=== PATIENT | male | born 1960 | race Caucasian/White ===

== ENCOUNTER 2022-11-27 05:50 | Inpatient (IN) | payer OTHER ==
[~2022-11-27] VITALS: Ht 175.3 cm; Wt 66.7 kg
--- NOTE | 2022-11-27 06:00 | NUR ---
To ER bed 9, [id number], from home, c/o sob x 4 weeks 99% on room air, aaox4, breathing even and non labored, connected to monitor
--- NOTE | 2022-11-27 06:14 | NUR ---
XRAY AT BEDSIDE
--- NOTE | 2022-11-27 06:24 | NUR ---
EDWIGE COLLECTED AND SENT TO LAB
[2022-11-27] MEDS ORDERED: FUROSEMIDE 40 MG/4 ML VIAL ONE (06:41)
[2022-11-27] MEDS ORDERED: NITROGLYCERIN PACKET 1 GM PACKET ONE (06:42)
[2022-11-27] MEDS ORDERED: ASPIRIN 325 MG TABLET ONE (06:42)
[2022-11-27 06:56] LABS: BASOPHILS # (AUTO) 0.1 K/uL (0.0-0.2); RED BLOOD CELL COUNT(AUTO) 2.88 MIL/uL (4.5-6.0)
[2022-11-27] MEDS ORDERED: NITROGLYCERIN PACKET 1 GM PACKET TD ONE (07:00)
[2022-11-27] MEDS ORDERED: FUROSEMIDE 40 MG/4 ML VIAL IV ONE (07:00)
[2022-11-27] MEDS ORDERED: ASPIRIN 325 MG TABLET PO ONE (07:00)
[2022-11-27 07:22] LABS: CALCIUM, SERUM 8.4 mg/dL (8.5-10.1); CARBON DIOXIDE 25 mmol/L (21-32); CHLORIDE 107 mmol/L (98-107); CREATININE 1.2 mg/dL (0.6-1.3); GLUCOSE 112 mg/dL (74-106); POTASSIUM 4.2 mmol/L (3.5-5.1); SODIUM SERUM 141 mmol/L (136-145); UREA NITROGEN, BLOOD 37 mg/dL (7-18)
[2022-11-27 07:26] LABS: EOSINOPHILS % (AUTO) 1.2 % (0.0-6.0); HEMATOCRIT 23 % (39-51); LYMPHOCYTES # (AUTO) 1.6 K/uL (0.8-4.8); MEAN CORPUSCULAR HGB CONC 30 g/dl (31.0-36.0); MEAN CORPUSCULAR VOLUME 81 fL (80-96); MONOCYTES # (AUTO) 0.7 K/uL (0.1-1.30); MONOCYTES % (AUTO) 7.7 % (2.0-12.0); NEUTROPHILS # (AUTO) 6.8 K/uL (1.8-8.9); NEUTROPHILS % (AUTO) 73.1 % (43.0-81.0); PLATELET COUNT (AUTO) 361 K/uL (150-450); WHITE BLOOD COUNT (AUTO) 9.3 K/uL (4.3-11.0)
[2022-11-27 07:30] LABS: ALANINE AMINOTRANSFERASE 33 U/L (12-78); ALBUMIN 2.7 g/dL (3.4-5.0); ALKALINE PHOSPHATASE 113 U/L (46-116); ASPARTATE AMINOTRANSFERASE 22 U/L (15-37); BILIRUBIN,DIRECT 0.1 mg/dL (0.0-0.2); BILIRUBIN,TOTAL 0.3 mg/dL (0.2-1.0)
--- NOTE | 2022-11-27 07:32 | NUR ---
HOMOGLOBIN 7.0 M MADE AWARE
[2022-11-27 07:51] LABS: BILIRUBIN,URINE NEGATIVE (NEGATIVE); COLOR,URINE YELLOW (YELLOW); LEUKOCYTE ESTERASE ,URINE NEGATIVE (NEGATIVE); NITRITE, URINE NEGATIVE (NEGATIVE); PROTEIN,URINE TRACE mg/dl (NEGATIVE); UGLUCOSE 1+ mg/dL (NEGATIVE); UROBILINOGEN,URINE 0.2 EU/dL (0.2)
--- NOTE | 2022-11-27 07:54 | NUR ---
CONSENT FOR BLOOD TRANSFUSION SIGNED BY PATIENT
[2022-11-27] MEDS ORDERED: PANTOPRAZOLE 40 MG VIAL ONE (08:00)
[2022-11-27] MEDS ORDERED: PANTOPRAZOLE 40 MG VIAL IV ONE (08:00)
[2022-11-27 08:24] LABS: BACTERIA,URINE None seen /HPF (None Seen); RBC,URINE 0-2 /HPF (0-2); SQUAMOUS EPITHELIAL CELL,UR Rare /HPF (None Seen); WBC,URINE 0-2 /HPF (0-3)
--- NOTE | 2022-11-27 09:35 | NUR ---
BLOOD TRANSFUSION STARTED AT A SLOW RATE FOR 15 MIN, MONITORING FOR SIGNS AND SYMPTOMS OF REACTION. BLOOD VERIFIED BY TWO RN. INITIAL VITALS TAKEN AND RECORDED. CARE CONTINUES.
--- NOTE | 2022-11-27 09:50 | NUR ---
NO BLOOD TRANSFUSION REACTION NOTED THIS TIME.
[2022-11-27] MEDS ORDERED: IPRATROPIUM NEB FS 0.5 MG/2.5 ML AMPUL.NEB NEB PRN (10:00)
[2022-11-27] MEDS ORDERED: MAG HYDROX/AL HYDROX/SIMETH 30 ML UDC PO PRN (10:00)
[2022-11-27] MEDS ORDERED: ZOLPIDEM TARTRATE 5 MG TABLET PO PRN (10:00)
[2022-11-27] MEDS ORDERED: MAGNESIUM HYDROXIDE 30 ML UDC PO PRN (10:00)
[2022-11-27] MEDS ORDERED: ONDANSETRON HCL/PF 4 MG/2 ML VIAL IVP PRN (10:00)
[2022-11-27] MEDS ORDERED: ACETAMINOPHEN 325 MG TABLET PO PRN (10:00)
[2022-11-27] MEDS ORDERED: Z GUARD REMEDY 4 OZ OINT TP PRN (10:00)
[2022-11-27] MEDS ORDERED: ALBUTEROL FS 2.5 MG/3 ML VIAL.NEB NEB PRN (10:00)
[2022-11-27 10:03] LABS: FERRITIN 13 ng/mL (8-388)
--- NOTE | 2022-11-27 10:05 | NUR ---
GOT BED 119-1 ADMITTING INFORMED.
[2022-11-27 10:08] LABS: IRON, SERUM 16 ug/dl (50-175); TOTAL IRON BINDING CAPACITY 434 ug/dl (250-450)
[2022-11-27] MEDS ORDERED: hydrALAZINE HCL IV 20 MG VIAL IV PRN (10:30)
--- NOTE | 2022-11-27 10:45 | NUR ---
BLOOD TRANSFUSION DONE, NO BAD REACTION NOTED. NOTIFIED.
--- NOTE | 2022-11-27 10:58 | NUR ---
REPORT GIVEN TO GISELLE RODARTE FOR BALAJI
--- NOTE | 2022-11-27 11:15 | NUR ---
MOVED TO INPATIENT ROOM SAFELY PER ACLS PROTOCOL. ENDORSED TO FLOOR NURSE AT BEDSIDE
--- NOTE | 2022-11-27 11:22 | NUR ---
RN NOTE PATIENT REFUSED TO HAVE SURGERY NOTIFIED MD, PATIENT REFUSES TO BE NPO WELL.
[2022-11-27 12:00] VITALS: BP 147/72
--- NOTE | 2022-11-27 12:35 | NUR ---
RN NOTE PER MD, PATIENT CAN HAVE REGULAR DIET, WILL FOCUS ON CHF EXACERBATION. PATIENT REFUSED EGD.
[2022-11-27 16:00] VITALS: BP 143/96
[2022-11-27] MEDS: METOPROLOL SUCCINATE 25 MG TAB.SR.24H PO SCH (16:18)
[2022-11-27] MEDS: methylPREDNISolone SOD SUCC 40 MG/ML VIAL IV SCH ×2 (16:18→20:46)
--- NOTE | 2022-11-27 19:45 | NUR ---
RN OPENING NOTES: RECEIVED PATIENT IN BED, AWAKE, ALERT/ORIENTED X4 AND VERBALLY RESPONSIVE. AMBULATORY TO THE RESTROOM. ON O2 AT 1L/MIN VIA N/C AND PT TOLERATED WELL IV ACCESS ON LT WRIST #20G INTACT AND PATENT. NO S/S OF INFILTRATIONS. PATIENT REFUSED EGD ON PREVIOUS SHIFT. DR. CARR. NO C/O PAIN OR DISCOMFORT. NO ACUTE DISTRESS. ALL SAFETY MEASURES IN PLACE. BED IN LOWEST POSITION AND LOCKED. SIDE RAILS UP X3, PLACE CALL LIGHT WITH IN REACH, WILL CONTINUE TO MONITOR
[2022-11-27 20:00] VITALS: BP 145/86
--- NOTE | 2022-11-27 20:23 | NUR ---
MANAGER STORY CLOSING NOTE PATIENT IS IN BED AOX4, AMBULATORY. BREATHING ON 1L NC, COMPLAINING OF SOB, EDUCATED PATIENT TO SIT IN TRIPOD POSITION TO BREATHE. ABLE TO MAKE NEEDS KNOWN. IV ACCESS ON LW #20GSL. PHOTO OF LOWER LEFT LEG RASH TAKEN AND PLACED IN CHART. WOUND CARE CONSULT ORDERED. PATIENT REFUSED EGD, MD AWARE. PATIENT IS ON REGULAR DIET. WILL ENDORSE CONTINUITY OF CARE TO CRYSTAL LAPPER NURSE.
[2022-11-27] MEDS: PANTOPRAZOLE 40 MG VIAL IV SCH (20:46)
[2022-11-27] MEDS: FUROSEMIDE 40 MG/4 ML VIAL IV SCH (21:25)
[2022-11-28] VITALS: BP 125/82
[2022-11-28 04:00] VITALS: BP 147/92
[2022-11-28] MEDS: methylPREDNISolone SOD SUCC 40 MG/ML VIAL IV SCH ×3 (05:19→21:56)
--- NOTE | 2022-11-28 06:40 | NUR ---
RN CLOSING NOTES: PATIENT IN BED, AWAKE, ALERT/ORIENTED X4 AND VERBALLY RESPONSIVE. ON O2 AT 1L/MIN VIA N/C AND PT TOLERATED WELL. O2 SAT 95%. IV ACCESS ON LAC #20G INTACT AND PATENT. NO S/S OF INFILTRATIONS. NO C/O PAIN OR DISCOMFORT. NO ACUTE DISTRESS. ALL DUE MEDS GIVEN ORDERED. ALL SAFETY MEASURES IN PLACE. BED IN LOWEST POSITION AND LOCKED. SIDE RAILS UP X3, PLACE CALL LIGHT WITH IN REACH, WILL ENDORSE TO MORNING SHIFT NURSE.
[2022-11-28 06:54] LABS: BASOPHILS % (AUTO) 0.4 % (0.0-2.0); HEMATOCRIT 27 % (39-51); HEMOGLOBIN 8.4 g/dL (13.5-17.5); LYMPHOCYTES # (AUTO) 0.5 K/uL (0.8-4.8); LYMPHOCYTES % (AUTO) 5.4 % (20.0-44.0); MEAN CORPUSCULAR HGB CONC 31 g/dl (31.0-36.0); MEAN CORPUSCULAR VOLUME 78 fL (80-96); MONOCYTES # (AUTO) 0.1 K/uL (0.1-1.30); MONOCYTES % (AUTO) 0.6 % (2.0-12.0); NEUTROPHILS # (AUTO) 9.4 K/uL (1.8-8.9); NEUTROPHILS % (AUTO) 93.6 % (43.0-81.0); PLATELET COUNT (AUTO) 366 K/uL (150-450); RED BLOOD CELL COUNT(AUTO) 3.44 MIL/uL (4.5-6.0)
[2022-11-28 07:08] LABS: CALCIUM, SERUM 8.6 mg/dL (8.5-10.1); CREATININE 1.4 mg/dL (0.6-1.3); MAGNESIUM 2.3 mg/dL (1.8-2.4); PHOSPHORUS 4.9 mg/dL (2.5-4.9)
--- NOTE | 2022-11-28 07:12 | NUR ---
RN OPENING NOTES: RECEIVED PATIENT IN BED, AWAKE, ALERT/ORIENTED X4 AND VERBALLY RESPONSIVE. AMBULATORY TO THE RESTROOM. ON O2 AT 1L/MIN VIA N/C AND PT TOLERATED WELL IV ACCESS ON LAC #20G INTACT AND PATENT. NO S/S OF INFILTRATIONS. NO C/O PAIN OR DISCOMFORT. NO ACUTE DISTRESS. ALL SAFETY MEASURES IN PLACE. BED IN LOWEST POSITION AND LOCKED. SIDE RAILS UP X3, PLACE CALL LIGHT WITH IN REACH, WILL CONTINUE TO MONITOR
--- NOTE | 2022-11-28 07:38 | NUR ---
WOUND CARE CONSULT: PT PRESENTS WITH SCABS OVER SCARRING TO RT LOWER LEG, PRESENT ON ADMISSION. RECOMMENDATIONS MADE FOR SKIN PROTECTION. DISCUSSED WITH NURSING STAFF. MD IN AGREEMENT WITH PLAN OF CARE.
[2022-11-28 08:00] VITALS: BP 147/93
[2022-11-28] MEDS: POTASSIUM CHLORIDE 10 MEQ TABLET.SA PO SCH (08:27)
[2022-11-28] MEDS: OLANZAPINE 5 MG TABLET PO SCH (08:28)
[2022-11-28] MEDS: PANTOPRAZOLE 40 MG VIAL IV SCH ×2 (08:28→21:54)
[2022-11-28] MEDS: FUROSEMIDE 40 MG/4 ML VIAL IV SCH ×2 (08:28→21:43)
[2022-11-28] MEDS: METOPROLOL SUCCINATE 25 MG TAB.SR.24H PO SCH (09:28)
[2022-11-28 12:00] VITALS: BP 139/80
[2022-11-28] MEDS: SPIRONOLACTONE 25 MG TABLET PO SCH (12:26)
[2022-11-28] MEDS: LOSARTAN POTASSIUM 25 MG TABLET PO SCH (12:27)
[2022-11-28] MEDS ORDERED: FURO40TA5 PO (14:01)
[2022-11-28] MEDS ORDERED: DAPA10TA PO (14:01)
[2022-11-28] MEDS ORDERED: POTA-88 PO (14:01)
[2022-11-28] MEDS ORDERED: APIX5TAB PO (14:01)
[2022-11-28] MEDS ORDERED: PANT40TA49 PO (14:01)
[2022-11-28] MEDS ORDERED: METO25TA4 PO (14:01)
[2022-11-28] MEDS ORDERED: OLAN5TAB3 PO (14:01)
[2022-11-28] MEDS: MINERAL OIL/PETROL OINT 396 GM JAR TP SCH (15:17)
--- NOTE | 2022-11-28 15:37 | NUR ---
RN NOTE RECEIVED CALL FROM CHITO Eden PT POSITIVE FOR R NARES MRSA. NOTIFIED WITH ORDER. NOTED AND CARRIED OUT.
[2022-11-28 16:00] VITALS: BP 128/81
[2022-11-28] MEDS: MUPIROCIN OINT 2% 22 GM TUBE TP SCH (16:50)
--- NOTE | 2022-11-28 18:29 | NUR ---
CASINO DEALER CLOSING NOTE PT IN BED. AOX3. WITH PLEASANT ATTITUDE . ABLE TO MAKE NEEDS KNOWN. NO RESP DISTRESS NOTED. SKIN WARM AND DRY TO TOUCH. CALL LIGHT WITHIN REACH. ON 1 LPM. NC. TOLERATING WELL. TX RENDERED TO Kaleigh FRIEDMAN ON REGULAR DIET . NO ASPIRATION NOTED. LAC 20G, PATENT AND INTACT. NO INFILTRATION NOTED. CALL LIGHT WITHIN REACH
--- NOTE | 2022-11-28 19:35 | NUR ---
DIESEL ENGINE SPECIALIST OPENING NOTE RECEIVED PATIENT IN BED; AWAKE, ALERT AND ORIENTED X 4. ON O2 INHALATION @ 1 LPM VIA NASAL CANNULA; TOLERATING WELL. BREATHING EVEN AND NONLABORED. ON TELE MONITORING WHICH READS SINUS TACHYCARDIA HR-102 BPM. DENIES ANY PAIN OR DISCOMFORT. WITH IV ACCESS ON LEFT ANTECUBITAL 20g; PATENT, INTACT AND SALINE LOCKED. ABLE TO MAKE NEEDS KNOWN. FALL AND SAFETY PRECAUTIONS INITIATED: CALL LIGHT AND TABLE WITHIN REACH, SIDE RAILS UP X 2, BED IN LOWEST LOCKED POSITION. WILL CONTINUE TO MONITOR THROUGHOUT SHIFT.
[2022-11-28 20:00] VITALS: BP 128/73
[2022-11-29] VITALS: BP 137/86
[2022-11-29 04:00] VITALS: BP 137/91
[2022-11-29] MEDS: MUPIROCIN OINT 2% 22 GM TUBE TP SCH (04:12)
[2022-11-29] MEDS: methylPREDNISolone SOD SUCC 40 MG/ML VIAL IV SCH ×3 (04:49→22:04)
--- NOTE | 2022-11-29 07:00 | NUR ---
LEARNING TECHNOLOGIST CLOSING NOTE PATIENT IN BED; AWAKE, A/O X 4. STILL ON O2 INHALATION @ 1 LPM VIA NASAL CANNULA; WELL TOLERATED. IN NO ACUTE DISTRESS. ON TELE MONITORING WHICH READS SINUS TACHYCARDIA HR-102 BPM. DENIES ANY PAIN OR DISCOMFORT. WITH IV ACCESS ON LEFT ANTECUBITAL 20g; PATENT, INTACT AND SALINE LOCKED. ALL NEEDS ATTENDED. FALL AND SAFETY PRECAUTIONS MAINTAINED: CALL LIGHT AND TABLE WITHIN REACH, SIDE RAILS UP X 2, BED IN LOWEST LOCKED POSITION. ENDORSED TO MORNING SHIFT FOR CONTINUITY OF CARE. Addendum: 11/29/22 at 0739 by SHERRI MAYFIELD RN PATIENT REMOVED TELE BOX. REFUSED TO BE HOOKED BACK TO EXTERNAL BUSINESS DEVELOPMENT ENGINEER.
--- NOTE | 2022-11-29 07:00 | NUR ---
RETAIL WAREHOUSE SUPERVISOR OPENING NOTE RECEIVED PATIENT IN BED; AWAKE, ALERT AND ORIENTED X 4. AGITATED, ON O2 INHALATION @ 1 LPM VIA NASAL CANNULA; TOLERATING WELL WITH NO COMPLAINS OF SHORTNESS OF BREATH, PAIN OR DISCOMFORT. PATIENT IS TELEMETRY WITH NO TELE BOX, PATIENT REFUSING. WITH IV ACCESS ON LEFT ANTECUBITAL 20g; PATENT, INTACT AND SALINE LOCKED. ABLE TO MAKE NEEDS KNOWN. SAFETY MEASURES IN PLACE, CALL LIGHT AND TABLE WITHIN REACH, SIDE RAILS UP X 2, BED IN LOWEST LOCKED POSITION. WILL CONTINUE TO MONITOR.
[2022-11-29 07:26] LABS: BASOPHILS % (AUTO) 0.1 % (0.0-2.0); HEMATOCRIT 30 % (39-51); HEMOGLOBIN 8.9 g/dL (13.5-17.5); LYMPHOCYTES # (AUTO) 0.7 K/uL (0.8-4.8); LYMPHOCYTES % (AUTO) 2.8 % (20.0-44.0); MEAN CORPUSCULAR HGB CONC 30 g/dl (31.0-36.0); MEAN CORPUSCULAR VOLUME 79 fL (80-96); MONOCYTES # (AUTO) 0.4 K/uL (0.1-1.30); MONOCYTES % (AUTO) 1.5 % (2.0-12.0); NEUTROPHILS % (AUTO) 95.6 % (43.0-81.0); PLATELET COUNT (AUTO) 424 K/uL (150-450); RED BLOOD CELL COUNT(AUTO) 3.78 MIL/uL (4.5-6.0)
[2022-11-29 07:55] LABS: CALCIUM, SERUM 8.7 mg/dL (8.5-10.1); CREATININE 1.4 mg/dL (0.6-1.3); MAGNESIUM 2.2 mg/dL (1.8-2.4); PHOSPHORUS 4.7 mg/dL (2.5-4.9)
[2022-11-29 08:00] VITALS: BP 160/99
[2022-11-29] MEDS: PANTOPRAZOLE 40 MG VIAL IV SCH ×2 (08:17→22:03)
[2022-11-29] MEDS: POTASSIUM CHLORIDE 10 MEQ TABLET.SA PO SCH (08:18)
[2022-11-29] MEDS: FUROSEMIDE 40 MG/4 ML VIAL IV SCH ×2 (08:18→22:04)
[2022-11-29] MEDS: LOSARTAN POTASSIUM 25 MG TABLET PO SCH (08:18)
[2022-11-29] MEDS: SPIRONOLACTONE 25 MG TABLET PO SCH (08:18)
[2022-11-29] MEDS: OLANZAPINE 5 MG TABLET PO SCH (08:18)
[2022-11-29] MEDS: MINERAL OIL/PETROL OINT 396 GM JAR TP SCH (08:31)
[2022-11-29] MEDS: METOPROLOL SUCCINATE 25 MG TAB.SR.24H PO SCH (10:48)
[2022-11-29 12:00] VITALS: BP 124/76
[2022-11-29 16:00] VITALS: BP 124/76
--- NOTE | 2022-11-29 19:01 | NUR ---
GRADUATE INTERNSHIP CLOSING NOTE PATIENT IN BED; AWAKE, ALERT AND ORIENTED X 4. ON O2 INHALATION @ 1 LPM VIA NASAL CANNULA; TOLERATING WELL WITH NO COMPLAINS OF SHORTNESS OF BREATH, PAIN OR DISCOMFORT. IV ACCESS ON LEFT ANTECUBITAL 20g; PATENT, INTACT AND SALINE LOCKED. ABLE TO MAKE NEEDS KNOWN. SAFETY MEASURES IN PLACE, CALL LIGHT AND TABLE WITHIN REACH, SIDE RAILS UP X 2, BED IN LOWEST LOCKED POSITION. REPORT GIVEN TO LAB CLERK NURSE FOR CONTINUING OF CARE.
--- NOTE | 2022-11-29 19:20 | NUR ---
BUSINESS STRATEGY MANAGER OPENING NOTE RECEIVED PT RESTING IN BED, AWAKE, A&OX3, VERBAL, AFEBRILE, BREATHING EVEN AND UNLABORED, DENIES PAIN, SKIN WARM AND DRY TO TOUCH, LAC 20 G C/D/I, SL, NO ACUTE DISTRESS NOTED AT THIS TIME, WILL CONTINUE TO MONITOR
[2022-11-29 20:00] VITALS: BP 128/76
[2022-11-29] MEDS: MUPIROCIN OINT 2% 22 GM TUBE NS SCH (21:59)
[2022-11-30] VITALS: BP 126/77
[2022-11-30 04:00] VITALS: BP 140/93
[2022-11-30] MEDS ORDERED: methylPREDNISolone SOD SUCC 40 MG/ML VIAL ONE (05:14)
[2022-11-30] MEDS: methylPREDNISolone SOD SUCC 40 MG/ML VIAL IV SCH ×3 (05:29→21:12)
--- NOTE | 2022-11-30 06:50 | NUR ---
MENTAL TESTER CLOSING NOTE RECEIVED PT RESTING IN BED, AWAKE, A&OX3, VERBAL, AFEBRILE, BREATHING EVEN AND UNLABORED, DENIES PAIN, SKIN WARM AND DRY TO TOUCH, LAC 20 G C/D/I, ALL DUE MEDS GIVEN PER MD ORDERS TOLERATED WELL, ALL BASIC NEEDS MET AND ANTICIPATED, ALL SAFETY MEASURES IN PLACE, WILL CONTINUE TO MONITOR
--- NOTE | 2022-11-30 07:00 | NUR ---
PRODUCT PROMOTER RETAIL PET CLOSING NOTE PATIENT IN BED; AWAKE, ALERT AND ORIENTED X 4. ON O2 INHALATION @ 1 LPM VIA NASAL CANNULA; TOLERATING WELL WITH NO COMPLAINS OF SHORTNESS OF BREATH, PAIN OR DISCOMFORT. IV ACCESS ON LEFT ANTECUBITAL 20g; PATENT, INTACT AND SALINE LOCKED. ABLE TO MAKE NEEDS KNOWN. SAFETY MEASURES IN PLACE, CALL LIGHT AND TABLE WITHIN REACH, SIDE RAILS UP X 2, BED IN LOWEST LOCKED POSITION. WILL CONTINUE TO MONITOR
[2022-11-30 07:41] LABS: HEMATOCRIT 31 % (39-51); HEMOGLOBIN 9.4 g/dL (13.5-17.5); LYMPHOCYTES # (AUTO) 0.4 K/uL (0.8-4.8); LYMPHOCYTES % (AUTO) 2.3 % (20.0-44.0); MEAN CORPUSCULAR HGB CONC 30 g/dl (31.0-36.0); MEAN CORPUSCULAR VOLUME 80 fL (80-96); MONOCYTES # (AUTO) 0.3 K/uL (0.1-1.30); MONOCYTES % (AUTO) 1.4 % (2.0-12.0); NEUTROPHILS # (AUTO) 18.4 K/uL (1.8-8.9); NEUTROPHILS % (AUTO) 96.3 % (43.0-81.0); PLATELET COUNT (AUTO) 423 K/uL (150-450); RED BLOOD CELL COUNT(AUTO) 3.87 MIL/uL (4.5-6.0); WHITE BLOOD COUNT (AUTO) 19.1 K/uL (4.3-11.0)
[2022-11-30 08:00] VITALS: BP 143/89
[2022-11-30 08:52] LABS: CALCIUM, SERUM 8.4 mg/dL (8.5-10.1); CREATININE 1.4 mg/dL (0.6-1.3); MAGNESIUM 2.2 mg/dL (1.8-2.4); PHOSPHORUS 4.5 mg/dL (2.5-4.9); POTASSIUM 3.7 mmol/L (3.5-5.1)
[2022-11-30] MEDS: SPIRONOLACTONE 25 MG TABLET PO SCH (09:23)
[2022-11-30] MEDS: LOSARTAN POTASSIUM 25 MG TABLET PO SCH (09:23)
[2022-11-30] MEDS: POTASSIUM CHLORIDE 10 MEQ TABLET.SA PO SCH (09:23)
[2022-11-30] MEDS: METOPROLOL SUCCINATE 25 MG TAB.SR.24H PO SCH (09:24)
[2022-11-30] MEDS: OLANZAPINE 5 MG TABLET PO SCH (09:24)
[2022-11-30] MEDS: FUROSEMIDE 40 MG/4 ML VIAL IV SCH (09:24)
[2022-11-30] MEDS: PANTOPRAZOLE 40 MG VIAL IV SCH (09:24)
--- NOTE | 2022-11-30 10:06 | NUR ---
RN NOTE AWAITING FOR MUPIROCIN AND AQUAPHOR. PHARMACY NOTIFIED
[2022-11-30] MEDS: MUPIROCIN OINT 2% 22 GM TUBE NS SCH ×2 (10:22→21:13)
--- NOTE | 2022-11-30 10:40 | NUR ---
RN NOTE AQUAPHOR BROUGHT BY PHARMACY AT THIS TIME
[2022-11-30] MEDS: MINERAL OIL/PETROL OINT 396 GM JAR TP SCH (10:41)
--- NOTE | 2022-11-30 19:33 | NUR ---
RN CLOSING NOTE PATIENT IN BED; AWAKE, ALERT AND ORIENTED X 4. ON O2 INHALATION @ 1 LPM VIA NASAL CANNULA; TOLERATING WELL WITH NO COMPLAINS OF SHORTNESS OF BREATH, PAIN OR DISCOMFORT. IV ACCESS ON LEFT ANTECUBITAL 20g; PATENT, INTACT AND SALINE LOCKED. ABLE TO MAKE NEEDS KNOWN. ALL MEDICATIONS GIVEN, PATIENT REPOSITIONED EVERY [address] MEASURES IN PLACE, CALL LIGHT AND TABLE WITHIN REACH, SIDE RAILS UP X 2, BED IN LOWEST LOCKED POSITION. REPORT GIVEN TO RN COMMUNITY NURSE.
[2022-11-30 20:00] VITALS: BP 130/89
--- NOTE | 2022-11-30 20:03 | NUR ---
RN OPENING NOTE PATIENT AWAKE IN BED. A/OX4. NO S/S OF DISTRESS, BREATHING WITHOUT DIFFICULTY ON 1L NC. LAC #20 SL INTACT AND PATENT. SAFETY MEASURES IN PLACE: BED LOCKED AND AT LOWEST POSITION, RAILS UP X2, CALL COLE WITHIN REACH. WILL CONTINUE TO MONITOR PATIENT.
[2022-11-30] MEDS: PANTOPRAZOLE 40 MG TABLET.DR PO SCH (21:13)
[2022-12-01 04:00] VITALS: BP 130/89
[2022-12-01] MEDS: methylPREDNISolone SOD SUCC 40 MG/ML VIAL IV SCH ×2 (05:51→12:54)
[2022-12-01 06:54] LABS: BASOPHILS % (AUTO) 0.2 % (0.0-2.0); HEMATOCRIT 30 % (39-51); HEMOGLOBIN 8.9 g/dL (13.5-17.5); LYMPHOCYTES # (AUTO) 0.5 K/uL (0.8-4.8); LYMPHOCYTES % (AUTO) 2.7 % (20.0-44.0); MEAN CORPUSCULAR HGB CONC 30 g/dl (31.0-36.0); MEAN CORPUSCULAR VOLUME 79 fL (80-96); MONOCYTES # (AUTO) 0.5 K/uL (0.1-1.30); NEUTROPHILS # (AUTO) 15.9 K/uL (1.8-8.9); NEUTROPHILS % (AUTO) 94.1 % (43.0-81.0); PLATELET COUNT (AUTO) 446 K/uL (150-450); RED BLOOD CELL COUNT(AUTO) 3.78 MIL/uL (4.5-6.0); WHITE BLOOD COUNT (AUTO) 16.9 K/uL (4.3-11.0)
--- NOTE | 2022-12-01 06:59 | NUR ---
RN CLOSING NOTE PATIENT AWAKE IN ROOM. A/OX4. NO S/S OF DISTRESS, BREATHING WITHOUT DIFFICULTY ON 1L NC. R-HAND #20 SL INTACT AND PATENT. PATIENT HAD REMOVED HIS PREVIOUS IV ACCESS; NO BLOOD; PRESSURE DRESSING APPLIED FOR SAFETY. NEW ACCESS ACHIEVED. SAFETY MEASURES IN PLACE: BED LOCKED AND AT LOWEST POSITION, RAILS UP X2, CALL COLE WITHIN REACH. WILL ENDORSE TO NEXT SHIFT FOR BALAJI.
[2022-12-01 07:11] LABS: CALCIUM, SERUM 8.6 mg/dL (8.5-10.1); CREATININE 1.4 mg/dL (0.6-1.3); MAGNESIUM 2.5 mg/dL (1.8-2.4); PHOSPHORUS 4.8 mg/dL (2.5-4.9); POTASSIUM 4.3 mmol/L (3.5-5.1)
[2022-12-01] MEDS ORDERED: FUROSEMIDE 40 MG TABLET PO SCH (09:00)
[2022-12-01] MEDS: MINERAL OIL/PETROL OINT 396 GM JAR TP SCH (09:47)
[2022-12-01 09:48] VITALS: BP 155/98
[2022-12-01] MEDS: SPIRONOLACTONE 25 MG TABLET PO SCH (09:48)
[2022-12-01] MEDS: METOPROLOL SUCCINATE 25 MG TAB.SR.24H PO SCH (09:48)
[2022-12-01] MEDS: PANTOPRAZOLE 40 MG TABLET.DR PO SCH (09:48)
[2022-12-01] MEDS: LOSARTAN POTASSIUM 25 MG TABLET PO SCH (09:48)
[2022-12-01] MEDS: POTASSIUM CHLORIDE 10 MEQ TABLET.SA PO SCH (09:48)
[2022-12-01] MEDS: OLANZAPINE 5 MG TABLET PO SCH (09:48)
[2022-12-01] MEDS: MUPIROCIN OINT 2% 22 GM TUBE NS SCH (09:51)
[2022-12-01] MEDS ORDERED: SPIR25TA PO (11:33)
[2022-12-01] MEDS ORDERED: FURO-144 PO (11:33)
[2022-12-01] MEDS ORDERED: METH4TAB3 PO (11:35)
[2022-12-01] MEDS ORDERED: POTA10CA43 PO (11:35)
--- NOTE | 2022-12-01 19:34 | NUR ---
Discharged patient to home per MDs order, patient stable A/O x4 able to make needs known, no pain or in any form of distress, all belongings accounted for, IV access removed, C/D/I, patient given discharge instructions both verbally and in writing. Charge nurse aware of the discharge
== END 2022-12-01 15:39 | disposition home health service (06) | DRG 140 ==
LOC: ER 06:03 → TELE1 10:43 → MEDSG1 11-29 10:30
PROVIDERS: ADMIT Nurse Practitioner Acute Care; ATTEND Nurse Practitioner Acute Care
PROC: 30233N1 Transfusion of Nonautologous Red Blood Cells into Peripheral Vein, Percutaneous Approach (ICD-10-PCS; principal; 2022-11-27)
DX: J44.1 Chronic obstructive pulmonary disease with (acute) exacerbation (principal); N17.0 Acute kidney failure with tubular necrosis; I50.23 Acute on chronic systolic (congestive) heart failure; D63.8 Anemia in other chronic diseases classified elsewhere; E88.09 Other disorders of plasma-protein metabolism, not elsewhere classified; I42.8 Other cardiomyopathies; I11.0 Hypertensive heart disease with heart failure; D50.9 Iron deficiency anemia, unspecified; E78.5 Hyperlipidemia, unspecified; Z20.822 Contact with and (suspected) exposure to COVID-19; F31.9 Bipolar disorder, unspecified; N40.0 Benign prostatic hyperplasia without lower urinary tract symptoms; Z79.899 Other long term (current) drug therapy; Z79.01 Long term (current) use of anticoagulants; Z91.199 Patient's noncompliance with other medical treatment and regimen due to unspecified reason; F17.200 Nicotine dependence, unspecified, uncomplicated; F14.90 Cocaine use, unspecified, uncomplicated; Z87.19 Personal history of other diseases of the digestive system
CPT/HCPCS: 36415; 71045-TC; 76770-TC; 80048-TC; 80061-TC; 80076-TC; 81001; 82728-TC; 83540-TC; 83605-TC; 83735-TC; 83880; 84100-TC; 84484-TC; 85025-TC; 85730-TC; 86850-TC; 87040-TC; 87081-TC; 87086-TC; 93307-TC; C9113; C9803; G0378; J1940; J2920; J7050; P9016

== ENCOUNTER 2023-02-04 21:28 | Inpatient (IN) | payer OTHER ==
[~2023-02-04] VITALS: Ht 180.3 cm; Wt 57.2 kg
[~2023-02-04 21:28] MED LIST: APIX5TAB PO; DAPA10TA PO; FURO-144 PO; METH4TAB3 PO; METO25TA4 PO; OLAN5TAB3 PO; PANT40TA49 PO; POTA10CA43 PO; SPIR25TA PO
[2023-02-04] MEDS ORDERED: CEFEPIME 1 GM VIAL ONE (22:10)
[2023-02-04] MEDS ORDERED: VANCOMYCIN 1 GM /D5W 250 ML PB IV ONE (22:10)
[2023-02-04] MEDS ORDERED: FUROSEMIDE 40 MG/4 ML VIAL ONE (22:14)
[2023-02-04 22:26] LABS: EOSINOPHILS % (AUTO) 0.1 % (0.0-6.0)
[2023-02-04] MEDS ORDERED: IV NS 0.9% 1,000 ML BAG IV ONE (22:30)
[2023-02-04] MEDS ORDERED: CEFEPIME 1 GM in IV D5W 50 ML IV ONE (22:30)
[2023-02-04] MEDS ORDERED: VANCOMYCIN 1 GM in IV D5W 250 ML IV ONE (22:30)
[2023-02-04] MEDS ORDERED: FUROSEMIDE 40 MG/4 ML VIAL IV ONE (22:30)
[2023-02-04 22:36] LABS: ABG BASE EXCESS -1.6 mmol/L; ABG OXYGEN SATURATION 98.7 % (92.0-98.5); ABG PH 7.529 (7.350-7.450); ABG PO2 200.6 mmHg (75.0-100.0); COHb 0.3 % (0.5-1.5); MetHb 0.9 % (0.0-1.5); O2Hb 97.5 % (94.0-97.0); SITE, ABG Right Radial; VENT MODE, BG 12L SIMPLE MASK
[2023-02-04 22:48] LABS: LYMPHOCYTES # (AUTO) 1.5 K/uL (0.8-4.8); LYMPHOCYTES % (AUTO) 3.4 % (20.0-44.0); MEAN CORPUSCULAR HGB CONC 28 g/dl (31.0-36.0); MEAN CORPUSCULAR VOLUME 78 fL (80-96); MONOCYTES # (AUTO) 1.6 K/uL (0.1-1.30); MONOCYTES % (AUTO) 3.7 % (2.0-12.0); NEUTROPHILS # (AUTO) 40.3 K/uL (1.8-8.9); NEUTROPHILS % (AUTO) 92.8 % (43.0-81.0); PLATELET COUNT (AUTO) 250 K/uL (150-450); RED BLOOD CELL COUNT(AUTO) 2.18 MIL/uL (4.5-6.0)
[2023-02-04 22:51] LABS: ALANINE AMINOTRANSFERASE 233 U/L (12-78); ALBUMIN 1.9 g/dL (3.4-5.0); ALKALINE PHOSPHATASE 80 U/L (46-116); ASPARTATE AMINOTRANSFERASE 69 U/L (15-37); BILIRUBIN,DIRECT 0.6 mg/dL (0.0-0.2); BILIRUBIN,TOTAL 1.3 mg/dL (0.2-1.0); CALCIUM, SERUM 7.5 mg/dL (8.5-10.1); CARBON DIOXIDE 19 mmol/L (21-32); CHLORIDE 104 mmol/L (98-107); CREATININE 2.1 mg/dL (0.6-1.3); GLUCOSE 86 mg/dL (74-106); SODIUM SERUM 140 mmol/L (136-145); TOTAL PROTEIN, SERUM 4.6 g/dL (6.4-8.2)
[2023-02-04 22:55] LABS: WHITE BLOOD COUNT (AUTO) 43.4 K/uL (4.3-11.0)
[2023-02-04 22:56] LABS: HEMATOCRIT 17 % (39-51); HEMOGLOBIN 4.7 g/dL (13.5-17.5)
[2023-02-04 22:57] LABS: POTASSIUM 2.5 mmol/L (3.5-5.1); UREA NITROGEN, BLOOD 88 mg/dL (7-18)
[2023-02-04] MEDS ORDERED: LORAZEPAM INJ 2 MG/ML VIAL ONE (23:18)
[2023-02-04] MEDS ORDERED: LORAZEPAM INJ 2 MG/ML VIAL IV ONE (23:30)
[2023-02-04] MEDS ORDERED: POTASSIUM CL. PREMIX PERIPHER. 50 ML ONE (23:50)
[2023-02-04] MEDS: POTASSIUM CL. PREMIX PERIPHER. 50 ML IV SCH (23:50)
[2023-02-05] VITALS (34 sets, daily range): BP systolic 93–122; BP diastolic 28–86; TEMP 96.3–98.8; O2SAT 70–100
[2023-02-05] MEDS ORDERED: POTASSIUM CL. PREMIX PERIPHER. 50 ML ONE (00:51)
[2023-02-05] MEDS: POTASSIUM CL. PREMIX PERIPHER. 50 ML IV SCH ×10 (00:53→15:15)
[2023-02-05] MEDS ORDERED: IV NS 0.9% 1,000 ML IV SCH (01:00)
[2023-02-05] MEDS ORDERED: ONDANSETRON HCL/PF 4 MG/2 ML VIAL IVP PRN (01:00)
[2023-02-05] MEDS ORDERED: MEROPENEM 1 G in IV NS 0.9% 100 ML IV ONE (01:00)
[2023-02-05 01:27] LABS: LYMPHOCYTES % (MANUAL) 3 % (16-48); MONOCYTES % (MANUAL) 2 % (0-11.0); NEUTROPHILS % (MANUAL) 95 (42-76)
[2023-02-05 01:33] LABS: BILIRUBIN,URINE NEGATIVE (NEGATIVE); COLOR,URINE YELLOW (YELLOW); LEUKOCYTE ESTERASE ,URINE NEGATIVE (NEGATIVE); NITRITE, URINE NEGATIVE (NEGATIVE); PROTEIN,URINE NEGATIVE (NEGATIVE); UGLUCOSE NEGATIVE (NEGATIVE); UROBILINOGEN,URINE 0.2 EU/dL (0.2)
[2023-02-05 01:48] LABS: BACTERIA,URINE None seen /HPF (None Seen); RBC,URINE 0-2 /HPF (0-2); SQUAMOUS EPITHELIAL CELL,UR None Seen /HPF (None Seen); WBC,URINE 0-2 /HPF (0-3)
[2023-02-05] MEDS ORDERED: MEROPENEM 500MG/NS 50 ML PB IV ONE (01:59)
[2023-02-05] MEDS ORDERED: LORAZEPAM INJ 2 MG/ML VIAL IV PRN (02:00)
[2023-02-05] MEDS: PANTOPRAZOLE 40 MG VIAL IV SCH ×3 (02:10→16:29)
[2023-02-05] MEDS: MORPHINE SULFATE INJ 2 MG/ML DISP.SYRIN IV PRN (03:00)
[2023-02-05] MEDS: IV NS 0.9% 250 ML IV PRN (06:31)
[2023-02-05] MEDS ORDERED: Z GUARD REMEDY 4 OZ OINT TP PRN (07:30)
[2023-02-05 07:59] LABS: ALBUMIN 1.9 g/dL (3.4-5.0); BILIRUBIN,TOTAL 1.7 mg/dL (0.2-1.0); CALCIUM, SERUM 7.4 mg/dL (8.5-10.1); CREATININE 2.2 mg/dL (0.6-1.3); POTASSIUM 2.9 mmol/L (3.5-5.1); TOTAL PROTEIN, SERUM 4.6 g/dL (6.4-8.2)
[2023-02-05] MEDS: OLANZAPINE 5 MG TABLET PO SCH (08:16)
[2023-02-05] MEDS: FUROSEMIDE 40 MG/4 ML VIAL IV SCH ×3 (08:27→16:29)
[2023-02-05] MEDS: Z GUARD REMEDY 4 OZ OINT TP SCH (09:02)
[2023-02-05] MEDS: CLOTRIMAZOLE 1% 15 GM TUBE TP SCH ×2 (09:02→16:29)
[2023-02-05] MEDS: NEOMY SULF/BACITRAC ZN/POLY 15 GM TUBE TP SCH (09:02)
[2023-02-05] MEDS ORDERED: POTASSIUM CHLORIDE 20 MEQ TAB.PRT.SR PO SCH ×2 (10:00→12:00)
[2023-02-05] MEDS ORDERED: MEROPENEM 1 G in IV NS 0.9% 100 ML IV SCH (13:00)
[2023-02-05 14:29] LABS: BASOPHILS # (AUTO) 0.1 K/uL (0.0-0.2); BASOPHILS % (AUTO) 0.3 % (0.0-2.0); EOSINOPHILS % (AUTO) 0.3 % (0.0-6.0); LYMPHOCYTES # (AUTO) 0.8 K/uL (0.8-4.8); LYMPHOCYTES % (AUTO) 1.8 % (20.0-44.0); MEAN CORPUSCULAR HGB CONC 29 g/dl (31.0-36.0); MEAN CORPUSCULAR VOLUME 79 fL (80-96); MONOCYTES # (AUTO) 0.2 K/uL (0.1-1.30); MONOCYTES % (AUTO) 0.4 % (2.0-12.0); NEUTROPHILS # (AUTO) 41.9 K/uL (1.8-8.9); NEUTROPHILS % (AUTO) 97.2 % (43.0-81.0); PLATELET COUNT (AUTO) 239 K/uL (150-450); RED BLOOD CELL COUNT(AUTO) 2.38 MIL/uL (4.5-6.0)
[2023-02-05 14:54] LABS: HEMATOCRIT 19 % (39-51); HEMOGLOBIN 5.5 g/dL (13.5-17.5); WHITE BLOOD COUNT (AUTO) 43.1 K/uL (4.3-11.0)
[2023-02-05] MEDS: CEFEPIME 2 GM in IV D5W 100 ML IV SCH (18:35)
[2023-02-05 20:06] LABS: BAND % (MANUAL) 11 % (0.0-5.0); LYMPHOCYTES % (MANUAL) 6 % (16-48); NEUTROPHILS % (MANUAL) 83 (42-76)
[2023-02-05] MEDS: LORAZEPAM INJ 2 MG/ML VIAL IV PRN (23:27)
[2023-02-06] VITALS (28 sets, daily range): BP systolic 100–132; BP diastolic 60–86; TEMP 97.6–98.5; O2SAT 94–100
[2023-02-06] MEDS: VANCOMYCIN 1.25 GM in IV D5W 250 ML IV SCH ×2 (00:41→22:15)
[2023-02-06] MEDS ORDERED: LORAZEPAM INJ 2 MG/ML VIAL IV ONE (01:30)
[2023-02-06] MEDS: IV NS 0.9% 250 ML IV PRN ×2 (03:17→14:31)
[2023-02-06 04:54] LABS: BASOPHILS % (AUTO) 0.1 % (0.0-2.0); EOSINOPHILS % (AUTO) 0.2 % (0.0-6.0); LYMPHOCYTES # (AUTO) 1.7 K/uL (0.8-4.8); MEAN CORPUSCULAR HGB CONC 29 g/dl (31.0-36.0); MEAN CORPUSCULAR VOLUME 80 fL (80-96); MONOCYTES # (AUTO) 1.2 K/uL (0.1-1.30); MONOCYTES % (AUTO) 3.5 % (2.0-12.0); NEUTROPHILS # (AUTO) 30.3 K/uL (1.8-8.9); NEUTROPHILS % (AUTO) 91.2 % (43.0-81.0); PLATELET COUNT (AUTO) 249 K/uL (150-450)
[2023-02-06 05:22] LABS: ALBUMIN 1.7 g/dL (3.4-5.0); BILIRUBIN,TOTAL 1.5 mg/dL (0.2-1.0); CALCIUM, SERUM 7.5 mg/dL (8.5-10.1); CREATININE 2.2 mg/dL (0.6-1.3); HEMATOCRIT 20 % (39-51); MAGNESIUM 1.7 mg/dL (1.8-2.4); POTASSIUM 3.3 mmol/L (3.5-5.1); TOTAL PROTEIN, SERUM 4.4 g/dL (6.4-8.2)
[2023-02-06 05:23] LABS: HEMOGLOBIN 5.8 g/dL (13.5-17.5); WHITE BLOOD COUNT (AUTO) 33.2 K/uL (4.3-11.0)
[2023-02-06] MEDS: CEFEPIME 2 GM in IV D5W 100 ML IV SCH ×2 (05:53→17:13)
[2023-02-06] MEDS: FUROSEMIDE 40 MG/4 ML VIAL IV SCH ×3 (08:14→16:09)
[2023-02-06] MEDS: PANTOPRAZOLE 40 MG VIAL IV SCH ×2 (08:14→16:09)
[2023-02-06] MEDS: NEOMY SULF/BACITRAC ZN/POLY 15 GM TUBE TP SCH (08:15)
[2023-02-06] MEDS: OLANZAPINE 5 MG TABLET PO SCH (08:15)
[2023-02-06] MEDS: CLOTRIMAZOLE 1% 15 GM TUBE TP SCH ×2 (08:15→16:10)
[2023-02-06] MEDS: Z GUARD REMEDY 4 OZ OINT TP SCH (08:15)
[2023-02-06] MEDS ORDERED: POTASSIUM CHLORIDE 20 MEQ TAB.PRT.SR PO SCH (09:00)
[2023-02-06] MEDS: LORAZEPAM INJ 2 MG/ML VIAL IV PRN (09:14)
[2023-02-06] MEDS: Magnesium 1GM/D5W 100ML PREMIX 100 ML IV SCH ×2 (09:14→09:57)
[2023-02-06] MEDS ORDERED: OLANZAPINE 10 MG VIAL IM ONE (10:00)
[2023-02-06] MEDS ORDERED: OLANZAPINE 10 MG VIAL IM PRN (10:00)
[2023-02-06] MEDS: POTASSIUM CL. PREMIX PERIPHER. 50 ML IV SCH ×4 (10:08→13:04)
[2023-02-06 12:51] LABS: OCCULT BLOOD STOOL POSITIVE (NEGATIVE)
[2023-02-06 13:39] LABS: BAND % (MANUAL) 8 % (0.0-5.0); BASOPHILS % (MANUAL) 0 % (0.0-2.0); EOSINOPHILS % (MANUAL) 0 % (0-4); LYMPHOCYTES % (MANUAL) 5 % (16-48); MONOCYTES % (MANUAL) 2 % (0-11.0); NEUTROPHILS % (MANUAL) 85 (42-76)
[2023-02-06] MEDS: MUPIROCIN OINT 2% 22 GM TUBE NS SCH (20:41)
[2023-02-06 21:39] LABS: BASOPHILS % (AUTO) 0.1 % (0.0-2.0); EOSINOPHILS % (AUTO) 0.2 % (0.0-6.0); HEMATOCRIT 24 % (39-51); HEMOGLOBIN 7.2 g/dL (13.5-17.5); LYMPHOCYTES # (AUTO) 1.5 K/uL (0.8-4.8); LYMPHOCYTES % (AUTO) 5.1 % (20.0-44.0); MEAN CORPUSCULAR HGB CONC 30 g/dl (31.0-36.0); MEAN CORPUSCULAR VOLUME 79 fL (80-96); MONOCYTES # (AUTO) 1.3 K/uL (0.1-1.30); MONOCYTES % (AUTO) 4.5 % (2.0-12.0); NEUTROPHILS # (AUTO) 26.8 K/uL (1.8-8.9); NEUTROPHILS % (AUTO) 90.1 % (43.0-81.0); PLATELET COUNT (AUTO) 243 K/uL (150-450); RED BLOOD CELL COUNT(AUTO) 3.01 MIL/uL (4.5-6.0); WHITE BLOOD COUNT (AUTO) 29.8 K/uL (4.3-11.0)
[2023-02-07] VITALS (24 sets, daily range): BP systolic 99–147; BP diastolic 56–81; TEMP 97.2–98.5; O2SAT 93–100
[2023-02-07 03:42] LABS: BASOPHILS % (AUTO) 0.1 % (0.0-2.0); EOSINOPHILS % (AUTO) 0.8 % (0.0-6.0); HEMATOCRIT 24 % (39-51); HEMOGLOBIN 7.2 g/dL (13.5-17.5); LYMPHOCYTES # (AUTO) 0.6 K/uL (0.8-4.8); LYMPHOCYTES % (AUTO) 2.5 % (20.0-44.0); MEAN CORPUSCULAR HGB CONC 30 g/dl (31.0-36.0); MEAN CORPUSCULAR VOLUME 80 fL (80-96); MONOCYTES # (AUTO) 1.4 K/uL (0.1-1.30); MONOCYTES % (AUTO) 5.2 % (2.0-12.0); NEUTROPHILS # (AUTO) 23.9 K/uL (1.8-8.9); NEUTROPHILS % (AUTO) 91.4 % (43.0-81.0); PLATELET COUNT (AUTO) 238 K/uL (150-450); RED BLOOD CELL COUNT(AUTO) 2.95 MIL/uL (4.5-6.0); WHITE BLOOD COUNT (AUTO) 26.1 K/uL (4.3-11.0)
[2023-02-07 04:05] LABS: ALBUMIN 1.8 g/dL (3.4-5.0); BILIRUBIN,TOTAL 1.3 mg/dL (0.2-1.0); CALCIUM, SERUM 7.8 mg/dL (8.5-10.1); CREATININE 1.9 mg/dL (0.6-1.3); PHOSPHORUS 4.2 mg/dL (2.5-4.9); POTASSIUM 2.9 mmol/L (3.5-5.1); TOTAL PROTEIN, SERUM 4.8 g/dL (6.4-8.2)
[2023-02-07] MEDS: CEFEPIME 2 GM in IV D5W 100 ML IV SCH (05:02)
[2023-02-07] MEDS: LORAZEPAM INJ 2 MG/ML VIAL IV PRN ×2 (07:05→13:49)
[2023-02-07] MEDS ORDERED: POTASSIUM CHLORIDE 10 MEQ/50 ML PREMIXED IVPB FOR PERIPHERAL LINE IV ONE (08:00)
[2023-02-07] MEDS: POTASSIUM CL. PREMIX PERIPHER. 50 ML IV SCH ×3 (08:42→11:12)
[2023-02-07] MEDS: PANTOPRAZOLE 40 MG VIAL IV SCH ×2 (08:43→17:29)
[2023-02-07] MEDS: FUROSEMIDE 40 MG/4 ML VIAL IV SCH ×3 (08:44→17:29)
[2023-02-07] MEDS: Z GUARD REMEDY 4 OZ OINT TP SCH (08:45)
[2023-02-07] MEDS: NEOMY SULF/BACITRAC ZN/POLY 15 GM TUBE TP SCH (08:45)
[2023-02-07] MEDS: CLOTRIMAZOLE 1% 15 GM TUBE TP SCH ×2 (08:45→17:29)
[2023-02-07] MEDS: MUPIROCIN OINT 2% 22 GM TUBE NS SCH ×2 (08:45→20:50)
[2023-02-07] MEDS: OLANZAPINE 5 MG TABLET PO SCH (09:24)
[2023-02-07] MEDS: PROSOURCE / PROSTAT (PYXIS) 30 ML UDC PO SCH ×2 (09:24→17:30)
[2023-02-07] MEDS: IV NS 0.9% 250 ML IV PRN (12:59)
[2023-02-07 13:23] LABS: HEMOGLOBIN 7.8 g/dL (13.5-17.5)
[2023-02-07 21:22] LABS: HEMOGLOBIN 7.2 g/dL (13.5-17.5)
[2023-02-07] MEDS ORDERED: VANCOMYCIN 1 GM in IV D5W 250ml IV SCH (23:00)
[2023-02-08] VITALS (28 sets, daily range): BP systolic 94–150; BP diastolic 43–126; TEMP 96.9–98; O2SAT 92–100
[2023-02-08] MEDS: LORAZEPAM INJ 2 MG/ML VIAL IV PRN ×5 (03:27→22:16)
[2023-02-08 04:18] LABS: BASOPHILS % (AUTO) 0.1 % (0.0-2.0); HEMATOCRIT 23 % (39-51); HEMOGLOBIN 7.4 g/dL (13.5-17.5); LYMPHOCYTES # (AUTO) 1.1 K/uL (0.8-4.8); MEAN CORPUSCULAR HGB CONC 32 g/dl (31.0-36.0); MEAN CORPUSCULAR VOLUME 80 fL (80-96); MONOCYTES # (AUTO) 1.2 K/uL (0.1-1.30); MONOCYTES % (AUTO) 5.6 % (2.0-12.0); NEUTROPHILS # (AUTO) 18.9 K/uL (1.8-8.9); NEUTROPHILS % (AUTO) 88.3 % (43.0-81.0); PLATELET COUNT (AUTO) 248 K/uL (150-450); RED BLOOD CELL COUNT(AUTO) 2.93 MIL/uL (4.5-6.0); WHITE BLOOD COUNT (AUTO) 21.4 K/uL (4.3-11.0)
[2023-02-08 04:39] LABS: ALBUMIN 1.9 g/dL (3.4-5.0); BILIRUBIN,TOTAL 1.6 mg/dL (0.2-1.0); CALCIUM, SERUM 8.1 mg/dL (8.5-10.1); CREATININE 1.7 mg/dL (0.6-1.3); MAGNESIUM 1.7 mg/dL (1.8-2.4); PHOSPHORUS 3.1 mg/dL (2.5-4.9); TOTAL PROTEIN, SERUM 4.9 g/dL (6.4-8.2)
[2023-02-08 05:15] LABS: POTASSIUM 2.7 mmol/L (3.5-5.1)
[2023-02-08] MEDS: CEFEPIME 2 GM in IV D5W 100 ML IV SCH (05:29)
[2023-02-08] MEDS: POTASSIUM CL. PREMIX PERIPHER. 50 ML IV SCH ×2 (06:17→07:37)
[2023-02-08] MEDS: PROSOURCE / PROSTAT (PYXIS) 30 ML UDC PO SCH ×2 (08:00→17:00)
[2023-02-08] MEDS: CLOTRIMAZOLE 1% 15 GM TUBE TP SCH ×2 (08:16→17:48)
[2023-02-08] MEDS: NEOMY SULF/BACITRAC ZN/POLY 15 GM TUBE TP SCH (08:16)
[2023-02-08] MEDS: MUPIROCIN OINT 2% 22 GM TUBE NS SCH ×2 (08:16→20:41)
[2023-02-08] MEDS: Z GUARD REMEDY 4 OZ OINT TP SCH (08:16)
[2023-02-08] MEDS: FUROSEMIDE 40 MG/4 ML VIAL IV SCH ×3 (08:19→18:58)
[2023-02-08] MEDS: PANTOPRAZOLE 40 MG VIAL IV SCH ×2 (08:19→17:47)
[2023-02-08] MEDS: OLANZAPINE 5 MG TABLET PO SCH (08:22)
[2023-02-08] MEDS ORDERED: POTASSIUM CHLORIDE 20 MEQ POWDER PACKET PO SCH (09:00)
[2023-02-08] MEDS: Magnesium 1GM/D5W 100ML PREMIX 100 ML IV SCH ×2 (09:03→10:01)
[2023-02-08] MEDS ORDERED: OLANZAPINE 10 MG VIAL IM ONE (10:30)
[2023-02-08 12:59] LABS: HEMOGLOBIN 7.4 g/dL (13.5-17.5)
[2023-02-08] MEDS ORDERED: ANESTHESIA TRAY IN PYXIS 1 EA TRAY MC ONE ×2 (14:17→19:02)
[2023-02-08] MEDS ORDERED: MIDAZOLAM HCL 2 MG/2ML VIAL ONE (18:15)
[2023-02-08 21:15] LABS: HEMOGLOBIN 9.1 g/dL (13.5-17.5)
[2023-02-08] MEDS: VANCOMYCIN 1 GM in IV D5W 250ml IV SCH (22:15)
[2023-02-09] VITALS (11 sets, daily range): BP systolic 100–139; BP diastolic 42–112; TEMP 97.3–97.6; O2SAT 93–100
[2023-02-09 04:36] LABS: BASOPHILS # (AUTO) 0.1 K/uL (0.0-0.2); BASOPHILS % (AUTO) 0.3 % (0.0-2.0); EOSINOPHILS % (AUTO) 0.5 % (0.0-6.0); HEMATOCRIT 29 % (39-51); LYMPHOCYTES # (AUTO) 1.5 K/uL (0.8-4.8); LYMPHOCYTES % (AUTO) 8.5 % (20.0-44.0); MEAN CORPUSCULAR HGB CONC 31 g/dl (31.0-36.0); MEAN CORPUSCULAR VOLUME 80 fL (80-96); MONOCYTES # (AUTO) 1.2 K/uL (0.1-1.30); MONOCYTES % (AUTO) 7.1 % (2.0-12.0); NEUTROPHILS # (AUTO) 14.7 K/uL (1.8-8.9); NEUTROPHILS % (AUTO) 83.6 % (43.0-81.0); PLATELET COUNT (AUTO) 238 K/uL (150-450); RED BLOOD CELL COUNT(AUTO) 3.65 MIL/uL (4.5-6.0); WHITE BLOOD COUNT (AUTO) 17.5 K/uL (4.3-11.0)
[2023-02-09 04:51] LABS: CALCIUM, SERUM 8.3 mg/dL (8.5-10.1); CREATININE 1.7 mg/dL (0.6-1.3); PHOSPHORUS 2.9 mg/dL (2.5-4.9)
[2023-02-09 05:20] LABS: POTASSIUM 2.7 mmol/L (3.5-5.1)
[2023-02-09] MEDS: CEFEPIME 2 GM in IV D5W 100 ML IV SCH ×2 (06:03→17:01)
[2023-02-09] MEDS: POTASSIUM CHLORIDE 10 MEQ/50 ML PREMIXED IVPB FOR PERIPHERAL LINE IV SCH ×2 (06:45→09:12)
[2023-02-09 08:46] LABS: THYROID STIMULATING HORMONE 1.313 uIU/mL (0.358-3.74)
[2023-02-09] MEDS: PROSOURCE / PROSTAT (PYXIS) 30 ML UDC PO SCH ×2 (08:53→16:11)
[2023-02-09] MEDS: CLOTRIMAZOLE 1% 15 GM TUBE TP SCH ×2 (08:54→16:11)
[2023-02-09] MEDS: NEOMY SULF/BACITRAC ZN/POLY 15 GM TUBE TP SCH (08:54)
[2023-02-09] MEDS: Z GUARD REMEDY 4 OZ OINT TP SCH (08:54)
[2023-02-09] MEDS: MUPIROCIN OINT 2% 22 GM TUBE NS SCH ×2 (08:54→21:41)
[2023-02-09] MEDS ORDERED: POTASSIUM CHLORIDE 20 MEQ POWDER PACKET PO ONE ×2 (09:00→10:00)
[2023-02-09] MEDS: PANTOPRAZOLE 40 MG VIAL IV SCH (09:36)
[2023-02-09] MEDS: OLANZAPINE 5 MG TABLET PO SCH (09:36)
[2023-02-09] MEDS: LORAZEPAM INJ 2 MG/ML VIAL IV PRN ×2 (10:01→14:05)
[2023-02-09] MEDS ORDERED: NEPRO VAN 237 ML CAN PO PRN (13:30)
[2023-02-09] MEDS: PANTOPRAZOLE 40 MG TABLET.DR PO SCH (16:16)
[2023-02-09] MEDS: HALOPERIDOL 5 MG TABLET PO SCH (16:33)
[2023-02-09] MEDS ORDERED: HALOPERIDOL LACTATE INJ 5 MG/ML VIAL IM PRN (17:00)
[2023-02-09] MEDS: VANCOMYCIN 1 GM in IV D5W 250ml IV SCH (23:07)
[2023-02-10] MEDS: HALOPERIDOL 5 MG TABLET PO PRN ×2 (00:38→10:47)
[2023-02-10 02:00] VITALS: BP 103/56; TEMP 97; O2SAT 100
[2023-02-10 06:00] VITALS: BP 105/50; TEMP 98.2; O2SAT 100
[2023-02-10] MEDS: CEFEPIME 2 GM in IV D5W 100 ML IV SCH ×2 (06:20→17:41)
[2023-02-10] MEDS: LORAZEPAM INJ 2 MG/ML VIAL IV PRN ×3 (06:47→19:55)
[2023-02-10 07:19] LABS: BASOPHILS % (AUTO) 0.1 % (0.0-2.0); EOSINOPHILS % (AUTO) 0.8 % (0.0-6.0); HEMATOCRIT 30 % (39-51); HEMOGLOBIN 8.9 g/dL (13.5-17.5); LYMPHOCYTES # (AUTO) 1.6 K/uL (0.8-4.8); LYMPHOCYTES % (AUTO) 7.5 % (20.0-44.0); MEAN CORPUSCULAR HGB CONC 30 g/dl (31.0-36.0); MEAN CORPUSCULAR VOLUME 81 fL (80-96); MONOCYTES # (AUTO) 1.2 K/uL (0.1-1.30); MONOCYTES % (AUTO) 5.7 % (2.0-12.0); NEUTROPHILS # (AUTO) 18.3 K/uL (1.8-8.9); NEUTROPHILS % (AUTO) 85.9 % (43.0-81.0); PLATELET COUNT (AUTO) 246 K/uL (150-450); RED BLOOD CELL COUNT(AUTO) 3.67 MIL/uL (4.5-6.0); WHITE BLOOD COUNT (AUTO) 21.3 K/uL (4.3-11.0)
[2023-02-10 07:48] LABS: ALBUMIN 1.9 g/dL (3.4-5.0); BILIRUBIN,TOTAL 1.6 mg/dL (0.2-1.0); CALCIUM, SERUM 8.4 mg/dL (8.5-10.1); CREATININE 1.6 mg/dL (0.6-1.3); MAGNESIUM 2.1 mg/dL (1.8-2.4); PHOSPHORUS 2.3 mg/dL (2.5-4.9); POTASSIUM 3.4 mmol/L (3.5-5.1); TOTAL PROTEIN, SERUM 5.2 g/dL (6.4-8.2)
[2023-02-10] MEDS: ACETAMINOPHEN 325 MG TABLET PO PRN (08:05)
[2023-02-10] MEDS: PANTOPRAZOLE 40 MG TABLET.DR PO SCH ×2 (08:05→17:29)
[2023-02-10] MEDS: HALOPERIDOL 5 MG TABLET PO SCH ×3 (08:05→17:29)
[2023-02-10] MEDS: PROSOURCE / PROSTAT (PYXIS) 30 ML UDC PO SCH ×2 (08:05→17:41)
[2023-02-10 10:00] VITALS: BP 112/66; TEMP 97.8; O2SAT 95
[2023-02-10] MEDS: POTASSIUM CHLORIDE 20 MEQ TAB.PRT.SR PO SCH ×3 (10:46→14:51)
[2023-02-10] MEDS: MUPIROCIN OINT 2% 22 GM TUBE NS SCH ×2 (12:33→21:10)
[2023-02-10] MEDS: NEOMY SULF/BACITRAC ZN/POLY 15 GM TUBE TP SCH (12:33)
[2023-02-10] MEDS: CLOTRIMAZOLE 1% 15 GM TUBE TP SCH ×2 (12:33→17:36)
[2023-02-10] MEDS: Z GUARD REMEDY 4 OZ OINT TP SCH (12:34)
[2023-02-10 14:00] VITALS: BP 152/60; TEMP 97.9; O2SAT 96
[2023-02-10] MEDS ORDERED: K PHOS NEUTRAL 250 MG TABLET PO ONE (16:00)
[2023-02-10 18:00] VITALS: BP 126/70; TEMP 97.4; O2SAT 96
[2023-02-10 22:00] VITALS: BP 115/56; TEMP 98.3; O2SAT 96
[2023-02-10] MEDS: VANCOMYCIN 1 GM in IV D5W 250ml IV SCH (22:50)
[2023-02-11] VITALS (7 sets, daily range): BP systolic 103–123; BP diastolic 54–80; TEMP 97.7–98.2; O2SAT 92–100
[2023-02-11] MEDS: MORPHINE SULFATE INJ 2 MG/ML DISP.SYRIN IV PRN (04:58)
[2023-02-11 07:24] LABS: BASOPHILS % (AUTO) 0.2 % (0.0-2.0); EOSINOPHILS % (AUTO) 0.9 % (0.0-6.0); HEMATOCRIT 32 % (39-51); HEMOGLOBIN 9.6 g/dL (13.5-17.5); LYMPHOCYTES # (AUTO) 1.5 K/uL (0.8-4.8); LYMPHOCYTES % (AUTO) 7.4 % (20.0-44.0); MEAN CORPUSCULAR HGB CONC 30 g/dl (31.0-36.0); MEAN CORPUSCULAR VOLUME 83 fL (80-96); MONOCYTES # (AUTO) 1.4 K/uL (0.1-1.30); MONOCYTES % (AUTO) 6.7 % (2.0-12.0); NEUTROPHILS # (AUTO) 17.5 K/uL (1.8-8.9); NEUTROPHILS % (AUTO) 84.8 % (43.0-81.0); PLATELET COUNT (AUTO) 223 K/uL (150-450); RED BLOOD CELL COUNT(AUTO) 3.86 MIL/uL (4.5-6.0); WHITE BLOOD COUNT (AUTO) 20.7 K/uL (4.3-11.0)
[2023-02-11 07:50] LABS: CALCIUM, SERUM 8.5 mg/dL (8.5-10.1); CREATININE 1.4 mg/dL (0.6-1.3); PHOSPHORUS 3.1 mg/dL (2.5-4.9); POTASSIUM 3.9 mmol/L (3.5-5.1)
[2023-02-11] MEDS: PROSOURCE / PROSTAT (PYXIS) 30 ML UDC PO SCH ×2 (08:41→17:58)
[2023-02-11] MEDS: HALOPERIDOL 5 MG TABLET PO SCH ×3 (08:44→18:00)
[2023-02-11] MEDS: PANTOPRAZOLE 40 MG TABLET.DR PO SCH ×2 (08:44→17:58)
[2023-02-11] MEDS: MUPIROCIN OINT 2% 22 GM TUBE NS SCH ×2 (08:55→20:34)
[2023-02-11] MEDS: Z GUARD REMEDY 4 OZ OINT TP SCH (08:55)
[2023-02-11] MEDS: NEOMY SULF/BACITRAC ZN/POLY 15 GM TUBE TP SCH (08:55)
[2023-02-11] MEDS: CLOTRIMAZOLE 1% 15 GM TUBE TP SCH ×2 (08:55→17:45)
[2023-02-11 09:51] LABS: LYMPHOCYTES % (MANUAL) 9 % (16-48); MONOCYTES % (MANUAL) 7 % (0-11.0); NEUTROPHILS % (MANUAL) 84 (42-76)
[2023-02-12 04:00] VITALS: BP 120/60; TEMP 98.2; O2SAT 98
[2023-02-12 07:39] LABS: BASOPHILS # (AUTO) 0.1 K/uL (0.0-0.2); BASOPHILS % (AUTO) 0.8 % (0.0-2.0); HEMATOCRIT 31 % (39-51); HEMOGLOBIN 9.2 g/dL (13.5-17.5); LYMPHOCYTES % (AUTO) 6.7 % (20.0-44.0); MEAN CORPUSCULAR HGB CONC 30 g/dl (31.0-36.0); MEAN CORPUSCULAR VOLUME 83 fL (80-96); MONOCYTES # (AUTO) 0.8 K/uL (0.1-1.30); MONOCYTES % (AUTO) 5.1 % (2.0-12.0); NEUTROPHILS # (AUTO) 12.9 K/uL (1.8-8.9); NEUTROPHILS % (AUTO) 86.4 % (43.0-81.0); PLATELET COUNT (AUTO) 216 K/uL (150-450); RED BLOOD CELL COUNT(AUTO) 3.71 MIL/uL (4.5-6.0)
[2023-02-12 08:12] LABS: CALCIUM, SERUM 8.3 mg/dL (8.5-10.1); CREATININE 1.4 mg/dL (0.6-1.3); POTASSIUM 3.7 mmol/L (3.5-5.1)
[2023-02-12] MEDS: PANTOPRAZOLE 40 MG TABLET.DR PO SCH ×2 (09:53→17:16)
[2023-02-12] MEDS: MUPIROCIN OINT 2% 22 GM TUBE NS SCH ×2 (09:53→21:59)
[2023-02-12] MEDS: HALOPERIDOL 5 MG TABLET PO SCH ×3 (09:53→17:16)
[2023-02-12] MEDS: NEOMY SULF/BACITRAC ZN/POLY 15 GM TUBE TP SCH (09:54)
[2023-02-12] MEDS: CLOTRIMAZOLE 1% 15 GM TUBE TP SCH ×2 (09:55→17:15)
[2023-02-12] MEDS: Z GUARD REMEDY 4 OZ OINT TP SCH (09:56)
[2023-02-12] MEDS: PROSOURCE / PROSTAT (PYXIS) 30 ML UDC PO SCH ×2 (09:59→17:16)
[2023-02-12 16:00] VITALS: BP 105/62; TEMP 98.4; O2SAT 100
[2023-02-12 20:00] VITALS: BP 90/57; TEMP 98.5; O2SAT 100
[2023-02-13 04:00] VITALS: BP 98/54; TEMP 98.2; O2SAT 99
[2023-02-13 06:59] LABS: BASOPHILS # (AUTO) 0.1 K/uL (0.0-0.2); BASOPHILS % (AUTO) 0.7 % (0.0-2.0); EOSINOPHILS % (AUTO) 0.6 % (0.0-6.0); HEMATOCRIT 25 % (39-51); HEMOGLOBIN 7.5 g/dL (13.5-17.5); LYMPHOCYTES # (AUTO) 1.1 K/uL (0.8-4.8); LYMPHOCYTES % (AUTO) 7.8 % (20.0-44.0); MEAN CORPUSCULAR HGB CONC 30 g/dl (31.0-36.0); MEAN CORPUSCULAR VOLUME 80 fL (80-96); MONOCYTES # (AUTO) 0.7 K/uL (0.1-1.30); NEUTROPHILS # (AUTO) 11.7 K/uL (1.8-8.9); NEUTROPHILS % (AUTO) 85.9 % (43.0-81.0); PLATELET COUNT (AUTO) 191 K/uL (150-450); RED BLOOD CELL COUNT(AUTO) 3.08 MIL/uL (4.5-6.0); WHITE BLOOD COUNT (AUTO) 13.6 K/uL (4.3-11.0)
[2023-02-13 07:24] LABS: CALCIUM, SERUM 7.8 mg/dL (8.5-10.1); CREATININE 1.2 mg/dL (0.6-1.3); MAGNESIUM 1.8 mg/dL (1.8-2.4); PHOSPHORUS 2.6 mg/dL (2.5-4.9); POTASSIUM 3.7 mmol/L (3.5-5.1)
[2023-02-13 07:41] LABS: THYROID STIMULATING HORMONE 0.595 uIU/mL (0.358-3.74)
[2023-02-13 08:00] VITALS: BP 118/70; TEMP 98; O2SAT 100
[2023-02-13] MEDS: PANTOPRAZOLE 40 MG TABLET.DR PO SCH ×2 (08:39→16:27)
[2023-02-13] MEDS: PROSOURCE / PROSTAT (PYXIS) 30 ML UDC PO SCH ×2 (08:39→16:35)
[2023-02-13] MEDS: HALOPERIDOL 5 MG TABLET PO SCH ×3 (08:39→16:27)
[2023-02-13] MEDS: CLOTRIMAZOLE 1% 15 GM TUBE TP SCH ×2 (08:40→16:35)
[2023-02-13] MEDS: Z GUARD REMEDY 4 OZ OINT TP SCH (08:40)
[2023-02-13] MEDS: MUPIROCIN OINT 2% 22 GM TUBE NS SCH ×2 (08:40→22:00)
[2023-02-13] MEDS: NEOMY SULF/BACITRAC ZN/POLY 15 GM TUBE TP SCH (08:40)
[2023-02-13 16:00] VITALS: BP 113/70; TEMP 98.2; O2SAT 95
[2023-02-13 16:29] LABS: HEMOGLOBIN 7.6 g/dL (13.5-17.5)
[2023-02-14] VITALS: BP_SYST 101; BP_SYST 120; BP_DIAS 58; BP_DIAS 70; TEMP 98.2; TEMP 98.3; O2SAT 97
[2023-02-14 06:50] LABS: HEMOGLOBIN 7.8 g/dL (13.5-17.5)
[2023-02-14 08:00] VITALS: BP 110/66; TEMP 97.9; O2SAT 100
[2023-02-14 08:06] LABS: IMMUNOGLOBULIN A, SERUM 218 mg/dL (61-437); IMMUNOGLOBULIN G, SERUM 759 mg/dL (603-1613); IMMUNOGLOBULIN M, SERUM 144 mg/dL (20-172)
[2023-02-14 08:25] LABS: CALCIUM, SERUM 8.2 mg/dL (8.5-10.1); CREATININE 1.2 mg/dL (0.6-1.3); POTASSIUM 3.6 mmol/L (3.5-5.1)
[2023-02-14] MEDS: HALOPERIDOL 5 MG TABLET PO SCH ×3 (08:26→16:51)
[2023-02-14] MEDS: PROSOURCE / PROSTAT (PYXIS) 30 ML UDC PO SCH ×2 (08:26→16:50)
[2023-02-14] MEDS: PANTOPRAZOLE 40 MG TABLET.DR PO SCH ×2 (08:26→16:50)
[2023-02-14] MEDS: MUPIROCIN OINT 2% 22 GM TUBE NS SCH ×2 (08:35→21:11)
[2023-02-14] MEDS: Z GUARD REMEDY 4 OZ OINT TP SCH (08:36)
[2023-02-14] MEDS: NEOMY SULF/BACITRAC ZN/POLY 15 GM TUBE TP SCH (08:36)
[2023-02-14] MEDS: CLOTRIMAZOLE 1% 15 GM TUBE TP SCH ×2 (08:36→16:55)
[2023-02-14] MEDS ORDERED: IOHEXOL-300 100 ML VIAL IV ONE (11:00)
[2023-02-14] MEDS ORDERED: IV NS 0.9% 250 ML IV ONE (11:00)
[2023-02-14] MEDS ORDERED: CT SWABBABLE VALVE TRANS SET 1 EA INFUS.SET MC ONE (11:00)
[2023-02-14 16:00] VITALS: BP 105/63; TEMP 97.9; O2SAT 99
[2023-02-14] MEDS: HALOPERIDOL 5 MG TABLET PO PRN (16:50)
[2023-02-15] VITALS: BP 101/58; TEMP 97.9; O2SAT 99
[2023-02-15] MEDS: ACETAMINOPHEN 325 MG TABLET PO PRN (00:26)
[2023-02-15 06:57] LABS: BASOPHILS # (AUTO) 0.1 K/uL (0.0-0.2); BASOPHILS % (AUTO) 1.2 % (0.0-2.0); EOSINOPHILS % (AUTO) 0.6 % (0.0-6.0); HEMATOCRIT 25 % (39-51); HEMOGLOBIN 7.8 g/dL (13.5-17.5); LYMPHOCYTES # (AUTO) 1.2 K/uL (0.8-4.8); LYMPHOCYTES % (AUTO) 14.5 % (20.0-44.0); MEAN CORPUSCULAR HGB CONC 32 g/dl (31.0-36.0); MEAN CORPUSCULAR VOLUME 81 fL (80-96); MONOCYTES # (AUTO) 0.6 K/uL (0.1-1.30); MONOCYTES % (AUTO) 8.1 % (2.0-12.0); NEUTROPHILS # (AUTO) 6.1 K/uL (1.8-8.9); NEUTROPHILS % (AUTO) 75.6 % (43.0-81.0); PLATELET COUNT (AUTO) 179 K/uL (150-450); RED BLOOD CELL COUNT(AUTO) 3.06 MIL/uL (4.5-6.0)
[2023-02-15 07:02] LABS: CALCIUM, SERUM 8.1 mg/dL (8.5-10.1); CREATININE 0.9 mg/dL (0.6-1.3); MAGNESIUM 1.7 mg/dL (1.8-2.4); PHOSPHORUS 2.3 mg/dL (2.5-4.9); POTASSIUM 3.7 mmol/L (3.5-5.1)
[2023-02-15 08:00] VITALS: BP 110/70; TEMP 97.6; O2SAT 97
[2023-02-15] MEDS: PROSOURCE / PROSTAT (PYXIS) 30 ML UDC PO SCH (09:24)
[2023-02-15] MEDS: Magnesium 1GM/D5W 100ML PREMIX 100 ML IV SCH ×2 (09:26→10:30)
[2023-02-15] MEDS: HALOPERIDOL 5 MG TABLET PO SCH ×2 (09:27→12:08)
[2023-02-15] MEDS: CLOTRIMAZOLE 1% 15 GM TUBE TP SCH (09:27)
[2023-02-15] MEDS: MUPIROCIN OINT 2% 22 GM TUBE NS SCH (09:27)
[2023-02-15] MEDS: PANTOPRAZOLE 40 MG TABLET.DR PO SCH (09:27)
[2023-02-15] MEDS: NEOMY SULF/BACITRAC ZN/POLY 15 GM TUBE TP SCH (09:28)
[2023-02-15] MEDS: Z GUARD REMEDY 4 OZ OINT TP SCH (09:28)
[2023-02-15] MEDS ORDERED: K PHOS NEUTRAL 250 MG TABLET PO ONE (10:30)
[2023-02-15 11:07] LABS: *SPE A/G RATIO 0.9 (0.7-1.7); *SPE ALPHA-1-GLOBULIN 0.3 g/dL (0.0-0.4); *SPE ALPHA-2-GLOBULIN 0.4 g/dL (0.4-1.0); *SPE BETA GLOBULIN 0.7 g/dL (0.7-1.3); *SPE M-SPIKE Not Observed g/dL (Not Observed)
[2023-02-15] MEDS ORDERED: PANT40TA49 PO (11:31)
[2023-02-15] MEDS ORDERED: HALO5TAB8 PO (11:31)
== END 2023-02-15 15:55 | disposition home or self-care (01) | DRG 720 ==
LOC: ER 21:29 → ICU 02-05 00:01 → TELE1 02-09 08:12 → MEDSG1 02-11 18:24
PROVIDERS: ADMIT Internal Medicine; ATTEND Internal Medicine
PROC: 5A09357 Assistance with Respiratory Ventilation, Less than 24 Consecutive Hours, Continuous Positive Airway Pressure (ICD-10-PCS; principal; 2023-02-05)
PROC: 30233N1 Transfusion of Nonautologous Red Blood Cells into Peripheral Vein, Percutaneous Approach (ICD-10-PCS; 2023-02-05)
PROC: 05HB33Z Insertion of Infusion Device into Right Basilic Vein, Percutaneous Approach (ICD-10-PCS; 2023-02-06)
PROC: 0DB48ZX Excision of Esophagogastric Junction, Via Natural or Artificial Opening Endoscopic, Diagnostic (ICD-10-PCS; 2023-02-08)
DX: A41.9 Sepsis, unspecified organism (principal); J96.21 Acute and chronic respiratory failure with hypoxia; N17.0 Acute kidney failure with tubular necrosis; G92.8 Other toxic encephalopathy; I50.43 Acute on chronic combined systolic (congestive) and diastolic (congestive) heart failure; E43 Unspecified severe protein-calorie malnutrition; D69.6 Thrombocytopenia, unspecified; R18.8 Other ascites; D62 Acute posthemorrhagic anemia; E88.09 Other disorders of plasma-protein metabolism, not elsewhere classified; I21.A1 Myocardial infarction type 2; I48.91 Unspecified atrial fibrillation; I13.0 Hypertensive heart and chronic kidney disease with heart failure and stage 1 through stage 4 chronic kidney disease, or unspecified chronic kidney disease; N18.9 Chronic kidney disease, unspecified; Z20.822 Contact with and (suspected) exposure to COVID-19; K22.70 Barrett's esophagus without dysplasia; K29.70 Gastritis, unspecified, without bleeding; J44.9 Chronic obstructive pulmonary disease, unspecified; E78.5 Hyperlipidemia, unspecified; N40.0 Benign prostatic hyperplasia without lower urinary tract symptoms; Z87.19 Personal history of other diseases of the digestive system; Z79.84 Long term (current) use of oral hypoglycemic drugs; Z79.01 Long term (current) use of anticoagulants; Z79.899 Other long term (current) drug therapy; Z91.199 Patient's noncompliance with other medical treatment and regimen due to unspecified reason; Z59.00 Homelessness unspecified; I25.2 Old myocardial infarction; F17.200 Nicotine dependence, unspecified, uncomplicated; L03.115 Cellulitis of right lower limb; L03.116 Cellulitis of left lower limb; Z86.79 Personal history of other diseases of the circulatory system; E87.6 Hypokalemia; F14.129 Cocaine abuse with intoxication, unspecified; F15.129 Other stimulant abuse with intoxication, unspecified; F10.10 Alcohol abuse, uncomplicated; Y90.0 Blood alcohol level of less than 20 mg/100 ml; F31.9 Bipolar disorder, unspecified; I42.9 Cardiomyopathy, unspecified; E80.6 Other disorders of bilirubin metabolism; R74.01 Elevation of levels of liver transaminase levels; Z86.59 Personal history of other mental and behavioral disorders; Z86.14 Personal history of Methicillin resistant Staphylococcus aureus infection; R65.20 Severe sepsis without septic shock; N20.0 Calculus of kidney; K82.8 Other specified diseases of gallbladder; K76.0 Fatty (change of) liver, not elsewhere classified; E83.42 Hypomagnesemia; D50.9 Iron deficiency anemia, unspecified; K57.30 Diverticulosis of large intestine without perforation or abscess without bleeding; Z78.1 Physical restraint status; E87.1 Hypo-osmolality and hyponatremia; E87.0 Hyperosmolality and hypernatremia; T79.7XXA Traumatic subcutaneous emphysema, initial encounter; X58.XXXA Exposure to other specified factors, initial encounter; Y92.239 Unspecified place in hospital as the place of occurrence of the external cause; S31.20XA Unspecified open wound of penis, initial encounter; Y92.9 Unspecified place or not applicable; T14.8XXA Other injury of unspecified body region, initial encounter
CPT/HCPCS: 36415; 36600; 70450-TC; 71045-TC; 71250-TC; 71260-TC; 76705-TC; 80048-TC; 80053-TC; 80076-TC; 80202-TC; 81001; 82272-TC; 82378; 82607-TC; 82728-TC; 82784; 82803-TC; 83540-TC; 83605-TC; 83735-TC; 83880; 84100-TC; 84155; 84165; 84439-TC; 84443-TC; 84484-TC; 85025-TC; 85027-TC; 85730-TC; 86334; 86704; 86706; 86803; 86850-TC; 87040-TC; 87081-TC; 87086-TC; 87340; 87806; 88305-TC; 88313-TC; 94799-TC; 97110-TC; 97116-TC; 97530-TC; 99082-TC; A4223; C9113; G0378; G0480; J0692; J1630; J1940; J2060; J2185; J2250; J2270; J2704; J3370; J3475; J3480; J3490; J7030; J7040; J7050; J7060; P9016; Q9967

== ENCOUNTER 2023-02-22 01:12 | Inpatient (IN) | payer OTHER ==
[2023-02-22] VITALS (36 sets, daily range): BP systolic 76–111; BP diastolic 56–72; TEMP 97.6–99.1; O2SAT 95–100
[~2023-02-22] VITALS: Ht 175.3 cm; Wt 66.4 kg
[~2023-02-22 01:12] MED LIST changes: -APIX5TAB PO; +HALO5TAB8 PO; -METH4TAB3 PO
[2023-02-22 02:00] LABS: BASOPHILS # (AUTO) 0.1 K/uL (0.0-0.2); BASOPHILS % (AUTO) 1.5 % (0.0-2.0); EOSINOPHILS % (AUTO) 0.5 % (0.0-6.0); LYMPHOCYTES # (AUTO) 1.4 K/uL (0.8-4.8); LYMPHOCYTES % (AUTO) 14.1 % (20.0-44.0); MEAN CORPUSCULAR HEMOGLOBIN 28 PG (26.0-33.0); MEAN CORPUSCULAR HGB CONC 32 g/dl (31.0-36.0); MEAN CORPUSCULAR VOLUME 88 fL (80-96); MONOCYTES % (AUTO) 10.8 % (2.0-12.0); NEUTROPHILS % (AUTO) 73.1 % (43.0-81.0); PLATELET COUNT (AUTO) 302 K/uL (150-450); WHITE BLOOD COUNT (AUTO) 9.6 K/uL (4.3-11.0)
[2023-02-22 02:04] LABS: RED BLOOD CELL COUNT(AUTO) 1.41 MIL/uL (4.5-6.0)
[2023-02-22 02:05] LABS: HEMATOCRIT 13 % (39-51)
[2023-02-22 02:11] LABS: CALCIUM, SERUM 7.5 mg/dL (8.5-10.1); CARBON DIOXIDE 27 mmol/L (21-32); CHLORIDE 104 mmol/L (98-107); CREATININE 1.1 mg/dL (0.6-1.3); GLUCOSE 98 mg/dL (74-106); POTASSIUM 3.6 mmol/L (3.5-5.1); SODIUM SERUM 138 mmol/L (136-145); UREA NITROGEN, BLOOD 39 mg/dL (7-18)
[2023-02-22 02:16] LABS: INR 1.04 (0.91-1.10); PARTIAL THROMBOPLASTIN TIME 25.6 SEC (24.3-34.3); PROTHROMBIN TIME 10.9 SECS (9.2-11.1)
[2023-02-22 02:39] LABS: ALANINE AMINOTRANSFERASE 24 U/L (12-78); ALBUMIN 1.6 g/dL (3.4-5.0); ALKALINE PHOSPHATASE 71 U/L (46-116); ASPARTATE AMINOTRANSFERASE 19 U/L (15-37); BILIRUBIN,DIRECT 0.2 mg/dL (0.0-0.2); BILIRUBIN,TOTAL 0.5 mg/dL (0.2-1.0); NT-PRO BNP 9651 pg/mL (0-125); TOTAL PROTEIN, SERUM 4.2 g/dL (6.4-8.2)
[2023-02-22] MEDS ORDERED: PANTOPRAZOLE 40 MG VIAL ONE (02:48)
[2023-02-22] MEDS ORDERED: ONDANSETRON HCL/PF 4 MG/2 ML VIAL ONE (02:48)
[2023-02-22] MEDS ORDERED: INSULIN REGULAR, HUMAN 100 UNIT/ML 3 ML VIAL SQ PRN (03:00)
[2023-02-22] MEDS ORDERED: PANTOPRAZOLE 80 MG in IV NS 0.9% 500 ML IV ONE (03:00)
[2023-02-22] MEDS ORDERED: MAG HYDROX/AL HYDROX/SIMETH 30 ML UDC PO PRN (03:00)
[2023-02-22] MEDS ORDERED: DEXTROSE 50%-WATER 50 ML DISP.SYRIN IV PRN (03:00)
[2023-02-22] MEDS ORDERED: MAGNESIUM HYDROXIDE 30 ML UDC PO PRN (03:00)
[2023-02-22] MEDS ORDERED: Z GUARD REMEDY 4 OZ OINT TP PRN (03:00)
[2023-02-22] MEDS ORDERED: ACETAMINOPHEN 325 MG TABLET PO PRN (03:00)
[2023-02-22] MEDS ORDERED: ONDANSETRON HCL/PF 4 MG/2 ML VIAL IV ONE (03:00)
[2023-02-22] MEDS ORDERED: ZOLPIDEM TARTRATE 5 MG TABLET PO PRN (03:00)
[2023-02-22] MEDS ORDERED: ONDANSETRON HCL/PF 4 MG/2 ML VIAL IVP PRN (03:00)
[2023-02-22 03:16] LABS: LYMPHOCYTES % (MANUAL) 14 % (16-48); MONOCYTES % (MANUAL) 8 % (0-11.0); MYELOCYTES % 2 % (0-0); NEUTROPHILS % (MANUAL) 76 (42-76); PLATELET ESTIMATE ADEQUATE
[2023-02-22 03:17] LABS: ANISOCYTOSIS 1+
[2023-02-22] MEDS: MORPHINE SULFATE INJ 2 MG/ML DISP.SYRIN IV PRN (06:14)
[2023-02-22] MEDS: BLOOD SUGAR DIAGNOSTIC 1 EACH STRIP IN SCH ×4 (07:40→21:03)
[2023-02-22] MEDS: PANTOPRAZOLE 40 MG VIAL IV SCH ×2 (09:44→20:22)
[2023-02-22] MEDS: HALOPERIDOL 5 MG TABLET PO SCH ×3 (09:44→17:00)
[2023-02-22] MEDS: SPIRONOLACTONE 25 MG TABLET PO SCH (09:45)
[2023-02-22] MEDS: OLANZAPINE 5 MG TABLET PO SCH (09:45)
[2023-02-22] MEDS: FUROSEMIDE 40 MG TABLET PO SCH (09:45)
[2023-02-22] MEDS: METOPROLOL SUCCINATE 25 MG TAB.SR.24H PO SCH (09:45)
[2023-02-22] MEDS: DAPAGLIFLOZIN PROPANEDIOL 5 MG TABLET PO SCH (12:43)
[2023-02-22 13:40] LABS: BASOPHILS # (AUTO) 0.1 K/uL (0.0-0.2); BASOPHILS % (AUTO) 0.9 % (0.0-2.0); EOSINOPHILS # (AUTO) 0.1 K/uL (0.0-0.7); EOSINOPHILS % (AUTO) 0.4 % (0.0-6.0); LYMPHOCYTES # (AUTO) 1.8 K/uL (0.8-4.8); LYMPHOCYTES % (AUTO) 12.6 % (20.0-44.0); MEAN CORPUSCULAR HEMOGLOBIN 29 PG (26.0-33.0); MEAN CORPUSCULAR HGB CONC 33 g/dl (31.0-36.0); MEAN CORPUSCULAR VOLUME 86 fL (80-96); MONOCYTES % (AUTO) 6.8 % (2.0-12.0); NEUTROPHILS # (AUTO) 11.1 K/uL (1.8-8.9); NEUTROPHILS % (AUTO) 79.3 % (43.0-81.0); PLATELET COUNT (AUTO) 297 K/uL (150-450); RED CELL DISTRIBUTION WIDTH 20.2 % (11.5-15.0); WHITE BLOOD COUNT (AUTO) 13.9 K/uL (4.3-11.0)
[2023-02-22 13:48] LABS: RED BLOOD CELL COUNT(AUTO) 1.88 MIL/uL (4.5-6.0)
[2023-02-22 13:49] LABS: HEMATOCRIT 16 % (39-51); HEMOGLOBIN 5.4 g/dL (13.5-17.5)
[2023-02-22 17:43] LABS: ANISOCYTOSIS 1+; BAND % (MANUAL) 2 % (0.0-5.0); LYMPHOCYTES % (MANUAL) 13 % (16-48); MONOCYTES % (MANUAL) 7 % (0-11.0); NEUTROPHILS % (MANUAL) 77 (42-76); PLATELET ESTIMATE ADEQUATE; REACTIVE LYMPHOCYTES 1 % (0-0)
[2023-02-22 21:26] LABS: BASOPHILS # (AUTO) 0.1 K/uL (0.0-0.2); EOSINOPHILS # (AUTO) 0.1 K/uL (0.0-0.7); EOSINOPHILS % (AUTO) 1.1 % (0.0-6.0); LYMPHOCYTES # (AUTO) 1.8 K/uL (0.8-4.8); LYMPHOCYTES % (AUTO) 17.9 % (20.0-44.0); MEAN CORPUSCULAR HEMOGLOBIN 28 PG (26.0-33.0); MEAN CORPUSCULAR HGB CONC 33 g/dl (31.0-36.0); MEAN CORPUSCULAR VOLUME 84 fL (80-96); MONOCYTES # (AUTO) 0.7 K/uL (0.1-1.30); MONOCYTES % (AUTO) 7.2 % (2.0-12.0); NEUTROPHILS # (AUTO) 7.2 K/uL (1.8-8.9); NEUTROPHILS % (AUTO) 72.8 % (43.0-81.0); PLATELET COUNT (AUTO) 252 K/uL (150-450); RED BLOOD CELL COUNT(AUTO) 2.02 MIL/uL (4.5-6.0); WHITE BLOOD COUNT (AUTO) 9.9 K/uL (4.3-11.0)
[2023-02-22 21:51] LABS: HEMATOCRIT 17 % (39-51); HEMOGLOBIN 5.7 g/dL (13.5-17.5)
[2023-02-22] MEDS ORDERED: VANCOMYCIN 1 GM /D5W 250 ML PB IV ONE (22:57)
[2023-02-22] MEDS ORDERED: VANCOMYCIN 1 GM in IV D5W 250 ML IV ONE (23:00)
[2023-02-23] VITALS (25 sets, daily range): BP systolic 85–119; BP diastolic 51–81; TEMP 97.6–98.4; O2SAT 96–100
[2023-02-23 03:27] LABS: ANISOCYTOSIS 1+; BASOPHILS % (MANUAL) 0 % (0.0-2.0); EOSINOPHILS % (MANUAL) 3 % (0-4); HYPOCHROMASIA 1+; LYMPHOCYTES % (MANUAL) 15 % (16-48); MONOCYTES % (MANUAL) 6 % (0-11.0); NEUTROPHILS % (MANUAL) 76 (42-76); PLATELET ESTIMATE ADEQUATE; STOMATOCYTES 1+
[2023-02-23] MEDS: BLOOD SUGAR DIAGNOSTIC 1 EACH STRIP IN SCH ×4 (08:00→22:08)
[2023-02-23] MEDS: METOPROLOL SUCCINATE 25 MG TAB.SR.24H PO SCH (08:22)
[2023-02-23] MEDS: HALOPERIDOL 5 MG TABLET PO SCH ×3 (08:22→17:41)
[2023-02-23] MEDS: OLANZAPINE 5 MG TABLET PO SCH (08:22)
[2023-02-23] MEDS: PANTOPRAZOLE 40 MG VIAL IV SCH ×2 (08:22→20:05)
[2023-02-23] MEDS: SPIRONOLACTONE 25 MG TABLET PO SCH (08:23)
[2023-02-23] MEDS: FUROSEMIDE 40 MG TABLET PO SCH (08:23)
[2023-02-23] MEDS: VANCOMYCIN 0.75 GM in IV D5W 250 ML IV SCH ×2 (08:26→20:00)
[2023-02-23] MEDS: DAPAGLIFLOZIN PROPANEDIOL 5 MG TABLET PO SCH (08:27)
[2023-02-23 09:14] LABS: BASOPHILS # (AUTO) 0.1 K/uL (0.0-0.2); EOSINOPHILS # (AUTO) 0.1 K/uL (0.0-0.7); EOSINOPHILS % (AUTO) 0.8 % (0.0-6.0); HEMATOCRIT 24 % (39-51); HEMOGLOBIN 7.9 g/dL (13.5-17.5); LYMPHOCYTES % (AUTO) 10.3 % (20.0-44.0); MEAN CORPUSCULAR HEMOGLOBIN 28 PG (26.0-33.0); MEAN CORPUSCULAR HGB CONC 33 g/dl (31.0-36.0); MEAN CORPUSCULAR VOLUME 87 fL (80-96); MONOCYTES # (AUTO) 0.6 K/uL (0.1-1.30); MONOCYTES % (AUTO) 5.8 % (2.0-12.0); NEUTROPHILS # (AUTO) 8.3 K/uL (1.8-8.9); NEUTROPHILS % (AUTO) 82.1 % (43.0-81.0); PLATELET COUNT (AUTO) 262 K/uL (150-450); RED BLOOD CELL COUNT(AUTO) 2.81 MIL/uL (4.5-6.0); RED CELL DISTRIBUTION WIDTH 19.1 % (11.5-15.0); WHITE BLOOD COUNT (AUTO) 10.1 K/uL (4.3-11.0)
[2023-02-23 09:46] LABS: ALBUMIN 1.6 g/dL (3.4-5.0); BILIRUBIN,TOTAL 0.7 mg/dL (0.2-1.0); CALCIUM, SERUM 7.5 mg/dL (8.5-10.1); CREATININE 1.1 mg/dL (0.6-1.3); MAGNESIUM 1.4 mg/dL (1.8-2.4); PHOSPHORUS 3.7 mg/dL (2.5-4.9); POTASSIUM 4.4 mmol/L (3.5-5.1); TOTAL PROTEIN, SERUM 4.1 g/dL (6.4-8.2)
[2023-02-23 11:52] LABS: IRON, SERUM 25 ug/dl (50-175); TOTAL IRON BINDING CAPACITY 223 ug/dl (250-450)
[2023-02-23] MEDS: MORPHINE SULFATE INJ 2 MG/ML DISP.SYRIN IV PRN (13:59)
[2023-02-24] VITALS (19 sets, daily range): BP systolic 88–124; BP diastolic 63–87; TEMP 98.1–98.3; O2SAT 95–100
[2023-02-24] MEDS: MORPHINE SULFATE INJ 2 MG/ML DISP.SYRIN IV PRN (00:37)
[2023-02-24 04:58] LABS: BASOPHILS # (AUTO) 0.1 K/uL (0.0-0.2); BASOPHILS % (AUTO) 1.8 % (0.0-2.0); EOSINOPHILS # (AUTO) 0.1 K/uL (0.0-0.7); EOSINOPHILS % (AUTO) 1.2 % (0.0-6.0); HEMATOCRIT 24 % (39-51); HEMOGLOBIN 7.9 g/dL (13.5-17.5); LYMPHOCYTES # (AUTO) 1.4 K/uL (0.8-4.8); LYMPHOCYTES % (AUTO) 19.4 % (20.0-44.0); MEAN CORPUSCULAR HEMOGLOBIN 29 PG (26.0-33.0); MEAN CORPUSCULAR HGB CONC 33 g/dl (31.0-36.0); MEAN CORPUSCULAR VOLUME 87 fL (80-96); MONOCYTES # (AUTO) 0.6 K/uL (0.1-1.30); MONOCYTES % (AUTO) 7.7 % (2.0-12.0); NEUTROPHILS # (AUTO) 5.1 K/uL (1.8-8.9); NEUTROPHILS % (AUTO) 69.9 % (43.0-81.0); PLATELET COUNT (AUTO) 284 K/uL (150-450); RED BLOOD CELL COUNT(AUTO) 2.69 MIL/uL (4.5-6.0); RED CELL DISTRIBUTION WIDTH 19.9 % (11.5-15.0); WHITE BLOOD COUNT (AUTO) 7.3 K/uL (4.3-11.0)
[2023-02-24 05:20] LABS: ALBUMIN 1.7 g/dL (3.4-5.0); BILIRUBIN,TOTAL 0.8 mg/dL (0.2-1.0); CALCIUM, SERUM 7.7 mg/dL (8.5-10.1); CREATININE 0.9 mg/dL (0.6-1.3); MAGNESIUM 1.6 mg/dL (1.8-2.4); PHOSPHORUS 4.7 mg/dL (2.5-4.9); POTASSIUM 4.2 mmol/L (3.5-5.1); TOTAL PROTEIN, SERUM 4.2 g/dL (6.4-8.2)
[2023-02-24] MEDS: BLOOD SUGAR DIAGNOSTIC 1 EACH STRIP IN SCH ×2 (07:54→12:34)
[2023-02-24] MEDS ORDERED: Magnesium 1GM/D5W 100ML PREMIX 100 ML IV SCH (08:00)
[2023-02-24] MEDS: METOPROLOL SUCCINATE 25 MG TAB.SR.24H PO SCH (08:08)
[2023-02-24] MEDS: PANTOPRAZOLE 40 MG VIAL IV SCH (08:11)
[2023-02-24] MEDS: Magnesium 1GM/D5W 100ML PREMIX 100 ML IV SCH ×2 (08:12→09:25)
[2023-02-24] MEDS: HALOPERIDOL 5 MG TABLET PO SCH ×2 (10:00→12:23)
[2023-02-24] MEDS: VANCOMYCIN 0.75 GM in IV D5W 250 ML IV SCH (10:16)
[2023-02-24] MEDS: OLANZAPINE 5 MG TABLET PO SCH (12:23)
[2023-02-24] MEDS: SPIRONOLACTONE 25 MG TABLET PO SCH (12:24)
[2023-02-24] MEDS: FUROSEMIDE 40 MG TABLET PO SCH (12:24)
[2023-02-24] MEDS: DAPAGLIFLOZIN PROPANEDIOL 5 MG TABLET PO SCH (12:25)
[2023-02-24] MEDS ORDERED: SOD FERRIC GLUC 125 MG in IV NS 0.9% 100 ML IV SCH (14:00)
== END 2023-02-24 16:27 | disposition home or self-care (01) | DRG 242 ==
LOC: ER 01:27 → ICU 03:05
PROVIDERS: ADMIT Nurse Practitioner Acute Care
PROC: 30233N1 Transfusion of Nonautologous Red Blood Cells into Peripheral Vein, Percutaneous Approach (ICD-10-PCS; principal; 2023-02-22)
PROC: 05HC33Z Insertion of Infusion Device into Left Basilic Vein, Percutaneous Approach (ICD-10-PCS; 2023-02-24)
DX: K22.11 Ulcer of esophagus with bleeding (principal); J96.21 Acute and chronic respiratory failure with hypoxia; G92.8 Other toxic encephalopathy; I50.43 Acute on chronic combined systolic (congestive) and diastolic (congestive) heart failure; E43 Unspecified severe protein-calorie malnutrition; I21.A1 Myocardial infarction type 2; R18.8 Other ascites; E88.09 Other disorders of plasma-protein metabolism, not elsewhere classified; D62 Acute posthemorrhagic anemia; I48.0 Paroxysmal atrial fibrillation; I42.8 Other cardiomyopathies; I11.0 Hypertensive heart disease with heart failure; E78.5 Hyperlipidemia, unspecified; Z87.19 Personal history of other diseases of the digestive system; N40.0 Benign prostatic hyperplasia without lower urinary tract symptoms; Z79.01 Long term (current) use of anticoagulants; Z79.899 Other long term (current) drug therapy; K22.9 Disease of esophagus, unspecified; Z91.199 Patient's noncompliance with other medical treatment and regimen due to unspecified reason; Z53.20 Procedure and treatment not carried out because of patient's decision for unspecified reasons; Z91.81 History of falling; W19.XXXA Unspecified fall, initial encounter; Y92.9 Unspecified place or not applicable; K57.30 Diverticulosis of large intestine without perforation or abscess without bleeding; K29.70 Gastritis, unspecified, without bleeding; J44.9 Chronic obstructive pulmonary disease, unspecified; Z59.00 Homelessness unspecified; F17.200 Nicotine dependence, unspecified, uncomplicated; E11.9 Type 2 diabetes mellitus without complications; E87.6 Hypokalemia; N17.9 Acute kidney failure, unspecified; N48.89 Other specified disorders of penis; F15.11 Other stimulant abuse, in remission; F14.11 Cocaine abuse, in remission; F31.9 Bipolar disorder, unspecified; N20.0 Calculus of kidney; E87.20 Acidosis, unspecified
CPT/HCPCS: 36415; 70450-TC; 71045-TC; 80048-TC; 80053-TC; 80076-TC; 80202-TC; 82728-TC; 82962-TC; 83540-TC; 83605-TC; 83735-TC; 83880; 84100-TC; 84484-TC; 85025-TC; 85730-TC; 86850-TC; 87040-TC; 87081-TC; A4223; A4349; C9113; G0378; J1815; J2270; J2405; J2916; J3370; J3475; J7030; J7040; J7050; J7060; P9016